=== PATIENT | female | born 1945 | race Caucasian/White ===

== ENCOUNTER 2018-12-08 15:08 | Inpatient (IN) | payer MEDICARE ==
[~2018-12-08] VITALS: Ht 160 cm; Wt 68.9 kg
[~2018-12-08 15:08] MED LIST: ATOR80 PO; Amitriptyline100 MG PO; BUTONI; CETI5 PO; CHOL10002 PO; CLOP75 PO; Cipro500 MG PO; DOC250 PO; FENO145 PO; FISH1000 PO; FLUT44OIA INH; Flagyl500 MG PO; Flonase 0.05% N16 GM; Isosorbide Dini30 MG PO; METO50ER PO; NITR.4SL SL; SITA100T2 PO; Zantac150 MG PO
[2018-12-08 16:02] LABS: Source, Urine Catheter
[2018-12-08 16:18] LABS: Bilirubin, Urine Neg (Neg); Blood, Urine 3+ (Neg); Glucose Qualitative, Urine Neg (Neg); Ketones, Urine 1+ (Neg); Leukocyte Esterase, Urine 3+ (Neg); Nitrite, Urine Neg (Neg); Protein, Urine 3+ (Neg); Urobilinogen, Urine NORM (Normal)
[2018-12-08 16:27] LABS: BASOPHILS ABSOLUTE AUTO 0.03 K/mm3 (0.00-0.23); BASOPHILS PERCENT AUTO 0 % (0-2); EOSINOPHILS ABSOLUTE AUTO 0.22 K/mm3 (0.00-0.68); EOSINOPHILS PERCENT AUTO 3 % (0-6); Hematocrit 20.6 % (33.0-51.0); IMMATURE GRAN ABSOLUTE AUTO 0.04 K/mm3 (0.00-0.10); IMMATURE GRAN PERCENT AUTO 1 % (0-1); LYMPHOCYTES ABSOLUTE AUTO 1.02 K/mm3 (0.84-5.20); LYMPHOCYTES PERCENT AUTO 12 % (21-46); MONOCYTES ABSOLUTE AUTO 0.53 K/mm3 (0.16-1.47); MONOCYTES PERCENT AUTO 6 % (4-13); Mean Corpuscular HGB 20.3 pg (26.0-34.0); Mean Corpuscular HGB Conc 26.2 g/dL (31.5-36.5); Mean Corpuscular Volume 77 fL (80-100); NEUTROPHILS ABSOLUTE AUTO 6.56 K/mm3 (1.96-9.15); NEUTROPHILS PERCENT AUTO 78 % (41-73); NRBC ABSOLUTE 0.12 K/mm3 (0.00-0.02); NRBC Auto 1.4 /100 WBC (0.0-0.2); Platelet Count 193 K/mm3 (150-400); RDW Coefficient Variation 17.9 % (11.7-14.2); RDW Standard Deviation 49.9 fL (35.1-46.3); Red Blood Cell Count 2.66 M/mm3 (3.80-5.20)
[2018-12-08 16:31] LABS: Color, Urine Yellow (P-Yellow)
[2018-12-08 16:31] LABS: Hemoglobin 5.4 g/dL (11.5-16.0)
[2018-12-08 16:33] LABS: Appearance, Urine Cloudy (Clear); Bacteria Many /hpf; Red Blood Cells, Urine 25-50 /hpf (0-2); Squamous Epithelial Cells Few /hpf (Few); White Blood Cells, Urine TNTC /hpf (0-5)
[2018-12-08 16:53] LABS: Albumin, Blood 2.7 g/dL (3.4-5.0); Albumin/Globulin Ratio 0.8 (0.8-1.8); Bilirubin, Total 0.6 mg/dL (0.1-1.0); Bun/Creatinine Ratio 25.2 (12.0-20.0); Calcium, Blood 8.4 mg/dL (8.5-10.1); Creatine Kinase MB 3.8 ng/mL (0.0-3.6); Creatinine, Blood 1.63 mg/dL (0.40-1.00); Globulin, Blood 3.3 g/dL (2.2-4.0); Magnesium, Blood 2.2 mg/dL (1.6-2.4); Potassium, Blood 5.8 mmol/L (3.5-5.5); Troponin I 0.413 ng/mL (0.000-0.040)
[2018-12-08 16:57] LABS: Thyroid Stimulating Hormone 1.64 uIU/mL (0.360-4.800)
[2018-12-08 17:20] LABS: IMMATURE RETIC FRACTION 9.5 % (2.3-16.0); RETIC HGB EQUIVALENT 14.9 pg (28.20-36.60); RETICULOCYTE ABSOLUTE 0.0653 M/mm3 (0.0200-0.1100); RETICULOCYTE COUNT PERCENT 2.4 % (0.50-2.50)
[2018-12-08] MEDS ORDERED: TRAM50 PO (17:59)
[2018-12-08] MEDS ORDERED: INSULANPEN SC (18:01)
[2018-12-08] MEDS ORDERED: NOVOLOG FL100 UNIT/1 (18:01)
[2018-12-08 18:50] LABS: Percent Saturation 2.7 % (15.0-50.0)
[2018-12-08 19:51] LABS: Base Excess Venous -5.2 mmol/L; Bicarbonate Venous 20.1 mmol/L (24.0-30.0); PO2 Venous 56.1 mmHg (38-42); pH Blood Venous 7.25 (7.34-7.37)
[2018-12-08 20:18] LABS: Albumin, Blood 2.6 g/dL (3.4-5.0); Anion Gap 8 mmol/L (6-16); Blood Urea Nitrogen 40 mg/dL (8-24); CO2, Blood 24 mmol/L (21-32); Calcium, Blood 8.7 mg/dL (8.5-10.1); Chloride, Blood 108 mmol/L (98-108); Glomerular Filtration Rate 34 (60-); Glucose, Blood 204 mg/dL (70-99); Sodium, Blood 140 mmol/L (136-145)
[2018-12-09 00:19] LABS: Hemoglobin 10.2 g/dL (11.5-16.0)
--- NOTE | 2018-12-09 01:56 | NUR ---
ASSUING CARE RECEIVED REPORT FROM EMERY LYNNE IN THE ER. PT IS BEING ADMITTED DUE TO SEVERE ANEMIA. PT IS ABLE TO ANSWER ORIENTATION QUESTIONS APPROPRIATELY BUT APPEARS TO BE CONFUSED AT TIMES AND HAS BEEN OBSEVED TO PULL AT LINES AND ATTEMPT TO GET OUT OF BED. PT IS RECEIVING 1 UNIT OF BLOOD AT THE TIME OF ARRIVAL TO ER. PER REPORT UNIT TRANSFUSION AT THE TIME OF ARRIVAL IS 2ND UNIT OF 3 ORDERED. TRANSFUSION COMPLETED AND 3RD UNIT VERIFIED AND INITIATED SHORTLY AFTER TIME OF ARRIVAL. PT LUNG SOUNDS ARE WHEEZY AND OCCASIONALL CRACKLES CAN BE HEARD. LR AT 100ML/HR HELD AT THIS ITME DUE TO CLINICAL JUDGMENT THROUGH BLOOD TRANSFUSION. WILL MONITOR AND INITIATE LR IS APPROPRIATE AFTER TRANSFUSION. PT IS RECEIVING PROTONIX GTT AT 10ML/HR, INITIATED SHORTLY AFTER TIME OF ARRIVAL. PT HAS COLOSTOMY TO RIGHT ABDOMEN. SOFT BROWN STOOL AND GAS NOTED IN COLOSTOMY BAG. NO BLACK OR TARRY STOOL NOTED. PT HAS NO OBVIOUS SIGNS OF BLEEDING AT THIS TIME. PT IS ON 4L O2 VIA NC AT THIS TIME. PT SPO2 IS DIFFICULT TO OBTAIN AT TIMES. PT SPO2 IS MAINTAINING IN THE HIGH 90'S WITH RELIABLE READINGS. PT BP IS MAINTAINING IN HTE LOW 100'S AT THIS TIME. ASSUMING CARE OF PT AT THE TIME OF ARRIVAL TO UNIT. WILL CONTINUE TO MONITOR PT.
[2018-12-09 03:34] LABS: BASOPHILS ABSOLUTE AUTO 0.05 K/mm3 (0.00-0.23); BASOPHILS PERCENT AUTO 1 % (0-2); EOSINOPHILS ABSOLUTE AUTO 0.11 K/mm3 (0.00-0.68); EOSINOPHILS PERCENT AUTO 1 % (0-6); Hemoglobin 9.8 g/dL (11.5-16.0); IMMATURE GRAN ABSOLUTE AUTO 0.05 K/mm3 (0.00-0.10); IMMATURE GRAN PERCENT AUTO 1 % (0-1); LYMPHOCYTES PERCENT AUTO 14 % (21-46); MONOCYTES ABSOLUTE AUTO 0.66 K/mm3 (0.16-1.47); MONOCYTES PERCENT AUTO 8 % (4-13); Mean Corpuscular HGB 24.5 pg (26.0-34.0); Mean Corpuscular HGB Conc 29.7 g/dL (31.5-36.5); NEUTROPHILS PERCENT AUTO 76 % (41-73); NRBC Auto 1.1 /100 WBC (0.0-0.2); Platelet Count 171 K/mm3 (150-400); RDW Standard Deviation 57.3 fL (35.1-46.3); White Blood Cell Count 8.77 K/mm3 (4.00-11.30)
[2018-12-09 03:42] LABS: Mean Corpuscular Volume 83 fL (80-100)
[2018-12-09 03:52] LABS: Bun/Creatinine Ratio 26.1 (12.0-20.0); Calcium, Blood 8.2 mg/dL (8.5-10.1); Creatinine, Blood 1.57 mg/dL (0.40-1.00); Potassium, Blood 4.4 mmol/L (3.5-5.5)
--- NOTE | 2018-12-09 06:18 | NUR ---
SHIFT SUMMARY NOTE PT HAS SLEPT THROUGH MUCH OF THE NIGHT. PT REMAINS ABLE TO ANSWER MOST ORIENTATION QUESTIONS APPROPRIATELY. PT OCCASIONALLY APPEARS TO BE CONFUSED BUT APPEARS TO BE IMPROVING OVERNIGHT. PT IS RECEIVING LR AT 100ML/HR AND PROTONIX AT 10ML/HR. PT RECEIVED 1 UNIT OF BLOOD AFTER ARRIVAL TO THE UNIT. PT COLOR APPEARS TO BE IMPROVED SINCE ARRIVAL. PT REMANS ON 4L O2 VIA NC. PT SPO2 IS IN THE HIGH 90'S. BP IS STABLE AT THIS TIME IN THE 110-120'S. PT HR HAS MAINTAINIED IN THE 80'S. PT LE CATH REMAINS IN PLACE. PT HAS HAD CLOUDY YELLOW URINE OVERNIGHT. WILL REPORT OFF TO ONCOMING DAY SHIFT NURSE.
--- NOTE | 2018-12-09 12:21 | NUR ---
REASSESSMENT: PT WAS VERY DIFFICULT TO WAKE UP THIS MORNING AND KEEP AWAKE, BUT NOW SHE WAKES EASILY AND STAYS AWAKE FOR A CONVERSATION. IF LEFT ALONE SHE DOES EVENTUALLY FALL BACK ASLEEP. LUNGS HAVE CRACKLES IN THE BASES, SHE IS ON 2L/NC. SR, BP STABLE, SEE VITALS. OSTOMY CONTINUES TO HAVE BROWN, SOFT OUTPUT. NO HEMATEMESIS OR ANY SIGNS OF BLEEDING. TOLERATING CL LIQUID DIET. PT'S CAME BY AND WAS FULLY UPDATED. CONTINUING TO MONITOR.
[2018-12-09 13:07] LABS: Hematocrit 33.1 % (33.0-51.0); Hemoglobin 9.9 g/dL (11.5-16.0)
--- NOTE | 2018-12-09 17:23 | NUR ---
SHIFT SUMMARY: PT HAS CONTINUED TO BE EASY TO AWAKE THIS AFTERNOON, BUT SLEEPS WHEN UNDISTURBED. DR. MEADOWS CAME BY AND IS PLANNING FOR AN EGD AND COLONSOCOPY TOMORROW EVENING AFTER OFFICE HOURS. PT HAS BEEN SR, BP STABLE. LUNGS ARE COARSE AND PT IS GETTING DYSPNEIC WITH MINIMAL EXERTION. DR. MEADOWS WROTE FOR LASIX. LE HAS YELLOW URINE WITH PURULENT OUTPUT WELL. SM AMT OF BROWN, SOFT OUTPUT IN THE OSTOMY BAG. PT'S HSUBAND CAME IN THIS MORNING AND WAS UPDATED.
--- NOTE | 2018-12-09 19:20 | NUR ---
ASSUME CARE: REPORT RECIEVED FROM [place]. FINISHING UP DINNER TRAY. MONITOR INTACT SHOWING SINUS RHYTHM. HEART RATE 80'S-90'S. DENIES DISCOMFORT. WATCHING TV. LUNG SOUNDS COARSE THROUGHOUT. RESPIRATIONS REGUALR AND EASY AT REST WITH O2 IN PLACE SPO2 98%, ABDOMEN SOFT WITH OSTOMY DEVICE INTACT WITH SOFT BROWN STOOL. LE PATENT DRAINING SHAWANDA URINE. HOLDEN WELL IN BED. CONTINUE TO MONITOR AND REPORT CHANGE IN PATIENT CONDITION
--- NOTE | 2018-12-10 02:30 | NUR ---
PT AWAKE . INFORMED OF PENDING TRANSFER TO PCU 3. CONTINUE TO MONITOR AND REPORT CHANGE IN PATIENT CONDITION.
[2018-12-10 04:20] LABS: BASOPHILS ABSOLUTE AUTO 0.04 K/mm3 (0.00-0.23); BASOPHILS PERCENT AUTO 0 % (0-2); EOSINOPHILS ABSOLUTE AUTO 0.26 K/mm3 (0.00-0.68); EOSINOPHILS PERCENT AUTO 3 % (0-6); Hematocrit 33.7 % (33.0-51.0); IMMATURE GRAN ABSOLUTE AUTO 0.09 K/mm3 (0.00-0.10); IMMATURE GRAN PERCENT AUTO 1 % (0-1); LYMPHOCYTES ABSOLUTE AUTO 1.11 K/mm3 (0.84-5.20); LYMPHOCYTES PERCENT AUTO 12 % (21-46); MONOCYTES ABSOLUTE AUTO 0.73 K/mm3 (0.16-1.47); MONOCYTES PERCENT AUTO 8 % (4-13); Mean Corpuscular HGB 24.2 pg (26.0-34.0); Mean Corpuscular HGB Conc 29.7 g/dL (31.5-36.5); Mean Corpuscular Volume 82 fL (80-100); NEUTROPHILS ABSOLUTE AUTO 7.39 K/mm3 (1.96-9.15); NEUTROPHILS PERCENT AUTO 77 % (41-73); NRBC ABSOLUTE 0.12 K/mm3 (0.00-0.02); NRBC Auto 1.2 /100 WBC (0.0-0.2); Platelet Count 156 K/mm3 (150-400); RDW Coefficient Variation 19.9 % (11.7-14.2); RDW Standard Deviation 58.4 fL (35.1-46.3); Red Blood Cell Count 4.13 M/mm3 (3.80-5.20); White Blood Cell Count 9.62 K/mm3 (4.00-11.30)
[2018-12-10 04:38] LABS: Alanine Aminotransfer (ALT/SGP 198 U/L (12-78); Albumin, Blood 2.4 g/dL (3.4-5.0); Albumin/Globulin Ratio 0.8 (0.8-1.8); Alk Phos 136 U/L (50-136); Anion Gap 7 mmol/L (6-16); Aspartate Aminotrans (AST/SGOT 175 U/L (12-37); Bilirubin, Total 0.7 mg/dL (0.1-1.0); Blood Urea Nitrogen 28 mg/dL (8-24); Bun/Creatinine Ratio 26.7 (12.0-20.0); CO2, Blood 28 mmol/L (21-32); Calcium, Blood 7.9 mg/dL (8.5-10.1); Chloride, Blood 106 mmol/L (98-108); Creatinine, Blood 1.05 mg/dL (0.40-1.00); Globulin, Blood 3.2 g/dL (2.2-4.0); Glomerular Filtration Rate 55 (60-); Glucose, Blood 208 mg/dL (70-99); Phosphorus, Blood 2.7 mg/dL (2.5-4.9); Potassium, Blood 3.3 mmol/L (3.5-5.5); Sodium, Blood 141 mmol/L (136-145); Total Protein, Blood 5.6 g/dL (6.4-8.2)
--- NOTE | 2018-12-10 06:49 | NUR ---
SHIFT SUMMARY. NO ACUTE CHANGES THIS SHIFT. PT DENIES ANY CHEST PAIN/PRESSURE, N/V OR SOB. PT STARTED COLON PREP AT 0600. PT'S VS HAVE BEEN STABLE. CALL LIGHT IN REACH, BED IS LOCKED AND LOW WILL CONTINUE TO MONITOR UNTIL REPORT IS GIVE TO ONCOMING RN.
--- NOTE | 2018-12-10 10:30 | NUR ---
PT CONVERTED TO AFIB IN THE 110'S TO 120'S. PT ASYMPTOMATIC. PT STATES SHE HAS CONVERTED TO AFIB BEFORE IN THE PAST. PT CONVERTED BACK TO SINUS SHORTLY AFTER SEE RHYTHM STRIPS IN CHART. HR IN THE 90'S AT THIS TIME.
--- NOTE | 2018-12-10 13:13 | NUR ---
PT ENCOURAGED ALL MORNING TO DRINK GOLYTELY FOR PROCEDURE. PT HAS ONLY HAD ABOUT HALF OF PREP AT THIS TIME. PT STILL HAVING BROWN STOOL IN COLOSTOMY. DR. MEADOWS CALLED AND ORDERS TO HAVE PT CONTINUE TO DRINK PREP. PT ENCOURAGED TO CONTINUE SO SHE CAN HAVE PROCEDURE. WILL CONITNUE TO MONITOR.
--- NOTE | 2018-12-10 15:30 | NUR ---
SPOKE WITH DR. MEADOWS ABOUT WHETHER OR NOT TO CONTINUE PREP. ORDERS TO STOP PREP IN ORDER FOR PT TO BE ABLE TO HAVE EGD THIS AFTERNOON AND WAIT TO DO THE COLONOSCOPY TOMORROW. PT NPO SINCE 1514. PT INFORMED OF PLAN. WILL CONTINUE TO MONITOR.
--- NOTE | 2018-12-10 17:00 | NUR ---
PT TAKEN TO DAY SURGERY FOR EGD PROCEDURE.
--- NOTE | 2018-12-10 17:21 | NUR ---
PATIENT GAVE PERMISSION FOR ME TO CARE FOR HER TODAY 12/10/18. History, Chart, Medications and Allergies reviewed before start of procedure.Patient confirms NPO status and agrees with scheduled surgery.PATIENT HAS COUGH AND IS ANESTESIA CASE. BASELINE ON 2L OXYGEN.
--- NOTE | 2018-12-10 17:41 | NUR ---
12/10/18 174 Bambi Khan History, Chart, Medications and Allergies reviewed before start of procedure.MAC CASE WITH DR. PADILLA. SEE [facility] RECORD FOR CARE.
--- NOTE | 2018-12-10 17:56 | NUR ---
STUDENT NURSE ASSISTING WITH CARE. AGREE WITH HER CHARTING AND CARE.
--- NOTE | 2018-12-10 19:13 | NUR ---
SHIFT SUMMARY PT RETURNED FROM PROCEDURE. PT ALERT AND ORIENTED. RECOVERY VITALS HAVE BEEN STABLE. PT ABLE TO TRANSFER FROM [facility] TO BED WITH MINIMAL ASSISTANCE. O2 SATS HAVE REMAINED ABOVE 92% ON 2L NC. HR HAS BEEN NSR WITH RATE IN THE 80'S. PT DENIES ANY PAIN AT THIS TIME. COLOSTOMY BAG HAS BEEN REPLACED THIS SHIFT AND PT RECEIVED BED BATH. REPORT GIVEN TO COMMERCIAL PROJECT MANAGER RN.
--- NOTE | 2018-12-11 04:26 | NUR ---
ASSUMED CARE OF PATIENT AT APPROXIMATELY 1905 FROM KACEY Her RN. PATIENT ALERT AND ORIENTED X4. PATIENT IN BED FOR SHIFT. PATIENT S/P EGD; TO HAVE COLONSCOPY TODAY; START PREP AT 0600; NPO AFTER 0100. TOLERATED CLEAR LIQUID DIET WELL AFTER UPPER. PATIENT DENIES PAIN, NAUSEA OR DIZZINESS. PATIENT REPORTS N/T IN LEFT FOOT THAT SHE HAS NOT HAD IN A LONG TIME. COLOSTOMY BAG BURPED AND EMPTIED FREQUENTLY. URINARY CATHETER PATENT AND DRAINING. SR TO ST ON TELE; OXYGEN SATURATION ABOVE 90% ON 2LPM VIA NC. 2X PIV S/L. PATIENT HAS SLEPT AT LEAST SEVEN HOURS THIS SHIFT. PATIENT CURRENTLY RESTING IN BED; CALL LIGHT IN REACH; BED IN LOWEST POSISION; BED ALARM ON; WILL CONINUE TO MONITOR AND ASSESS UNTIL END OF SHIFT.
[2018-12-11 06:12] LABS: BASOPHILS ABSOLUTE AUTO 0.04 K/mm3 (0.00-0.23); BASOPHILS PERCENT AUTO 1 % (0-2); EOSINOPHILS ABSOLUTE AUTO 0.34 K/mm3 (0.00-0.68); EOSINOPHILS PERCENT AUTO 4 % (0-6); Hematocrit 34.2 % (33.0-51.0); Hemoglobin 9.7 g/dL (11.5-16.0); IMMATURE GRAN ABSOLUTE AUTO 0.07 K/mm3 (0.00-0.10); IMMATURE GRAN PERCENT AUTO 1 % (0-1); LYMPHOCYTES PERCENT AUTO 11 % (21-46); MONOCYTES ABSOLUTE AUTO 0.72 K/mm3 (0.16-1.47); MONOCYTES PERCENT AUTO 9 % (4-13); Mean Corpuscular HGB 24.3 pg (26.0-34.0); Mean Corpuscular HGB Conc 28.4 g/dL (31.5-36.5); NEUTROPHILS ABSOLUTE AUTO 6.12 K/mm3 (1.96-9.15); NEUTROPHILS PERCENT AUTO 75 % (41-73); NRBC ABSOLUTE 0.07 K/mm3 (0.00-0.02); NRBC Auto 0.9 /100 WBC (0.0-0.2); Platelet Count 140 K/mm3 (150-400); RDW Coefficient Variation 20.9 % (11.7-14.2); RDW Standard Deviation 62.7 fL (35.1-46.3); White Blood Cell Count 8.19 K/mm3 (4.00-11.30)
[2018-12-11 06:22] LABS: Mean Corpuscular Volume 86 fL (80-100)
[2018-12-11 06:46] LABS: Albumin, Blood 2.3 g/dL (3.4-5.0); Anion Gap 8 mmol/L (6-16); Blood Urea Nitrogen 13 mg/dL (8-24); Bun/Creatinine Ratio 15.4 (12.0-20.0); CO2, Blood 28 mmol/L (21-32); Chloride, Blood 110 mmol/L (98-108); Creatinine, Blood 0.84 mg/dL (0.40-1.00); Glomerular Filtration Rate >60 (60-); Glucose, Blood 110 mg/dL (70-99); Phosphorus, Blood 2.3 mg/dL (2.5-4.9); Potassium, Blood 3.5 mmol/L (3.5-5.5); Sodium, Blood 146 mmol/L (136-145)
--- NOTE | 2018-12-11 06:52 | NUR ---
PATIENT SLEPT ABOUT NINE HOURS LAST NIGHT. NO ACUTE CHANGES. VSS. WILL CONTINUE TO MONITOR AND ASSESS UNTIL END OF SHIFT.
--- NOTE | 2018-12-11 11:12 | NUR ---
SHIFT NOTE ASSUMED CARE OF PT AT APPROX 0700 TODAY 12/11/18. VSS AND PT IN NO APPARENT SIGNS OF DISTRESS. PT ALERT AND ORIENTED. PT WITH MOIST, UNPRODUCTIVE COUGH THIS AM, LASIX ORDERED PER DR WINSTON. FIRST DOSE GIVEN AT 0900. PT INFILTRATED BOTH IV SITES. NEW IV IN R HAND. NEW COLOSTOMY BAG IN PLACE OF 1045. PT STARTED GOLYTELY AT 0600 WITH 300 ML COLOSTOMY OUTPUT. PT RESTING COMFORTABLY WITH NO C/O PAIN OR NAUSEA AT THIS TIME. SEE SHIFT ASSESSMENT FOR DETAILED ASSESSMENT. WILL CONTINUE TO MONITOR
--- NOTE | 2018-12-11 17:30 | NUR ---
SHIFT SUMMARY VSS THIS SHIFT. PT HAS BEEN DRINKING GOLYTELY SINCE 0600. PT REPORTED STOMACH CRAMPING AND PAIN THIS AFTERNOON WHICH SLOWED HER INTAKE OF GOLYTELY. DAY SURG CALLED AT 1715 WITH UPDATE ON COLONOSCOPY: DR IS ABOUT TWO HOURS BEHIND. PT NEEDS TO FINISH GOLYTELY BY 1745 THEN BE NPO. PT HAS BEEN EDUCATED ON REQUIREMENT FOR COLONOSCOPY AND IS CURRENTLY DRINKING GOLYTELY. COLOSTOMY CHANGED THIS SHIFT, CURRENTLY CDI. PT ON 2L NC AND KEEPING SATS ABOVE 90. NO ACUTE CHANGES THIS SHIFT. PT SR-ST IN LOW 100S. PT COMFORTABLE WITH NO COMPLAINTS AT THIS TIME. PT RECIEVED ULTRAM WHICH WAS EFFECTIVE FOR STOMACH PAIN THIS AFTERNOON. PT IN NO APPARENT SIGNS OF DISTRESS AND IS SITTING AT THE EDGE OF THE BED LOOKING OUT THE WINDOW. WILL CONTINUE TO MONITOR
--- NOTE | 2018-12-11 18:20 | NUR ---
COLONOSCOPY UPDATE DR MEADOWS AT BEDSIDE WITH PT AND DECIDES WE WILL NOT CONTINUE WITH COLONOSCOPTY TOMORROW. DR MEADOWS CURRENTLY DISCUSSING NG TUBE OPTION FOR PT D/T SLOW INTAKE OF GOLYTELY. PT REQUESTS NG TUBE. PER DR MEADOWS: COLONOSCOPY SCOPE NOW FOR TOMORROW. CLEAR LIQUIDS TONIGHT UNTIL, AND INCLUDING, BREAKFAST; THEN WATER ONLY, PLACE NG TUBE AND GIVE GOLYTELY UNTIL STOOL IS CLEAR LIKE WATER. NPO AT 1300 12/12/18.
--- NOTE | 2018-12-12 00:32 | NUR ---
ASSUMED CARE OF PATIENT AT APPROXIMATELY 1905 FROM THONG Phillips RN. PATIENT ALERT AND ORIENTED X4. PATIENT DID NOT HAVE SCOPE 4/4; SCOPE 4/5; WILL HAVE NG PLACED AFTER BREAKFAST AND GOLYTLY THROUGH TUBE. CLEAR LIQUID DIET UNTIL THEN. TOLERATED CLEAR LIQUID DIET WELL. PATIENT REPORTS PAIN IN ABDOMEN 04/18; DENIES TYLENOL; REPORTS ALLERGY OF VOMITING AND HIVES; ALLERGY LIST UPDATED; ULTRAM SCHEDULED BID; GIVEN APPROX 7 HOURS PRIOR; SURGICAL PRODUCT SALES CONSULTANT PAMELA CALLED; ORDERS RECIEVED. PATIENT DENIES NAUSEA OR DIZZINESS. PATIENT REPORTS N/T IN RIGHT FOOT. COLOSTOMY BAG BURPED AND EMPTIED FREQUENTLY. URINARY CATHETER PATENT AND DRAINING. SR TO ST ON TELE; OXYGEN SATURATION ABOVE 90% ON 2LPM VIA NC. NO IV ACCESS AT SHIFT CHANGE; HETAL Phillips, PCU CHARGE NURSE PLACED POWERGLIDE TO ANN. PATIENT CURRENTLY RESTING IN BED; CALL LIGHT IN REACH; BED IN LOWEST POSISION; BED ALARM ON; WILL CONINUE TO MONITOR AND ASSESS UNTIL END OF SHIFT.
[2018-12-12 04:03] LABS: Hematocrit 32.4 % (33.0-51.0); Hemoglobin 9.4 g/dL (11.5-16.0); Mean Corpuscular HGB 24.4 pg (26.0-34.0); Mean Corpuscular Volume 84 fL (80-100); NRBC ABSOLUTE 0.04 K/mm3 (0.00-0.02); NRBC Auto 0.5 /100 WBC (0.0-0.2); Platelet Count 149 K/mm3 (150-400); RDW Coefficient Variation 22.3 % (11.7-14.2); RDW Standard Deviation 62.4 fL (35.1-46.3); Red Blood Cell Count 3.86 M/mm3 (3.80-5.20); White Blood Cell Count 8.77 K/mm3 (4.00-11.30)
[2018-12-12 04:17] LABS: Anion Gap 7 mmol/L (6-16); Blood Urea Nitrogen 9 mg/dL (8-24); Bun/Creatinine Ratio 12.2 (12.0-20.0); CO2, Blood 32 mmol/L (21-32); Calcium, Blood 7.7 mg/dL (8.5-10.1); Chloride, Blood 104 mmol/L (98-108); Creatinine, Blood 0.74 mg/dL (0.40-1.00); Glomerular Filtration Rate >60 (60-); Glucose, Blood 115 mg/dL (70-99); Potassium, Blood 3.1 mmol/L (3.5-5.5); Sodium, Blood 143 mmol/L (136-145)
--- NOTE | 2018-12-12 06:07 | NUR ---
PATIENT HAD BEDBATH THIS MORNING. PATIENT SLEPT ABOUT FOUR HOURS LAST NIGHT. NO ACUTE CHANGES TO REPORT. WILL CONTINUE TO MONITOR AND ASSESS UNTIL END OF SHIFT.
--- NOTE | 2018-12-12 10:15 | NUR ---
ASSUMED CARE OF PT AT APPROX 0700. VSS WITH NO APPARENT SIGNS OF DISTRESS. PT ON CLEAR LIQUID DIET UNTI WATER ONLY AT 0900. PLAN FOR TODAY IS TO PLACE NG TUBE AND GIVE GOLYTELY. 1300 NPO AND COLONOSCOPY BY DR MEADOWS TO BE DONE THIS AFTERNOON. PT REQUEST NG TUBE BECAUSE SHE STATES SHE CANNOT DRINK THE GOLYTELY ON HER OWN. UPON ASSESSMENT, PT LUNGS CLEAR THROUGHOUT. DIMINISHED TO THE BASES. PT C/O HEADACH AND ULTRAM 50 MG GIVEN AND EFFECTIVE. LE CATH REMOVED BY THIS RN AT 1005 12/12/18. WILL MONITOR THAT PT VOIDS WITHIN 4 HOURS. PT WITH POWERGLIDE TO THE BRIGETTE, FLUSHES WELL AND IS CURRENTLY RUNNING K+ FOR 3.1 RESULT THIS AM. PT TOLERATING K+ INFUSION AT THIS TIME. PT IS MOVING ALL EXTREMITIES, SKIN CDI, NO C/O CALF TENDERNESS, REDNESS, SWELLING, OR PAIN. PT WOULD LIKE TO GET UP TO THE CHAIR TODAY. PT HAS NO C/O OR CONCERNS AT THIS TIME. DR ENRIQUEZ IN THIS AM WITH PT. NO NEW ORDERS RECIEVED. WILL CONTINUE TO MONITOR.
--- NOTE | 2018-12-12 14:23 | NUR ---
DAY SURGERY UPDATE PT REFUSED NG TUBE AT 1130 THIS AM. HAVE BEEN DIRECTING AND REDIRECTING PT TO CONSUME GOLYTELY PO. EDUCATED PT ON NEED TO CONSUME GOLYTELY. PT SLOW TO CONSUME. PT EDUCATED THAT IF NOT CONSUMED AND STOOL NOT CLEAR THEN PROCEDURE CANNOT BE DONE. PT VERBALIZES UNDERSTANDING. SPOKE WITH DAY SURGERY AT 1428, THEY SAY TO CONTINUE WITH GOLYTELY UNTIL 1500 THEN REASSESS. WILL DO SO. WILL CONTINUE TO MONITOR STOOL OUTPUT.
--- NOTE | 2018-12-12 16:21 | NUR ---
PT OFF UNIT WITH DAY SURGERY FOR COLONOSCOPY AT 3643
--- NOTE | 2018-12-12 16:59 | NUR ---
PATIENT GAVE PERMISSION FOR ME TO CARE FOR HER TODAY 12/12/18. History, Chart, Medications and Allergies reviewed before start of procedure.Patient confirms NPO status and agrees with scheduled surgery. Patient states colon prep results clear. Lungs clear T/O to Auscultation.
--- NOTE | 2018-12-12 17:02 | NUR ---
STUDENT RN SHAYNA ASSISTING WITH PRE PROCEDURE CARE. AGREE WITH HER CHARTING AND CARE.
--- NOTE | 2018-12-12 17:22 | NUR ---
SHIFT SUMMARY NO ACUTE CHANGES THIS SHIFT. PT OSTOMY SITE ENLARGED WITH GOLYTELY ADMINISTRATION. VSS. PT C/O HEADACHE TODAY RELIEVED BY 50 MG ULTRAM. NO CHANGES IN MENTATION. BREATH SOUNDS REMAIN CLEAR. PT STABLE ON RA WITH O2 ABOVE 90. SR TO ST ON TELE. NO COMPLAINTS OF CALF TENDERNESS, REDNESS, OR SWELLING. PT DENIES SOB OR CHEST PAIN. PT OFF UNIT AT THIS TIME WITH DAY SURGERY FOR COLONOSCOPY. WILL CONTINUE TO MONITOR ONCE PT RETURNS TO UNIT.
--- NOTE | 2018-12-12 18:24 | NUR ---
RECIEVED REPORT FROM DAY SURGERY RN
--- NOTE | 2018-12-12 18:50 | NUR ---
PT BACK IN PCU 3 AT 1840. VSS. NO APPARENT SIGNS OF DISTRESS.
--- NOTE | 2018-12-12 20:40 | NUR ---
PM NOTE. ASSUMED CARE OF PT APROX 1900, PT IS A&Ox4 AND SBA W/FWW. PT WAS ADMITTED DUE TO SEVERE ANEMIA, PT IS S/P COLONOSCOPY, PT IS RECOVERING WELL. TELE INTACT, NSR IN THE 90'S PER AERONAUTICAL ENGINEERING TEACHER, PT'S BP 123/67, PT HAS 1+ EDEMA TO HER BLLE. L/S CLEAR AND DIM T/O. BT PRESENT AND HYPERACTIVE ABD IS SOFT AND NONTENDER TO PALP, PT'S COLOSTOMY BAG IS INTACT DRAINING LIQUIDY LIGHT BROWN STOOL. CALL LIGHT IN REACH, BED IS LOCKED AND LOW WILL CONTINUE TO MONITOR.
[2018-12-13 04:38] LABS: Hematocrit 34.5 % (33.0-51.0); Mean Corpuscular HGB 24.8 pg (26.0-34.0); Mean Corpuscular Volume 85 fL (80-100); NRBC ABSOLUTE 0.03 K/mm3 (0.00-0.02); NRBC Auto 0.3 /100 WBC (0.0-0.2); Platelet Count 154 K/mm3 (150-400); RDW Coefficient Variation 22.8 % (11.7-14.2); RDW Standard Deviation 65.5 fL (35.1-46.3); Red Blood Cell Count 4.04 M/mm3 (3.80-5.20); White Blood Cell Count 9.27 K/mm3 (4.00-11.30)
[2018-12-13 04:39] LABS: Mean Platelet Volume 11.7 fL (9.1-12.4)
[2018-12-13 04:52] LABS: Anion Gap 4 mmol/L (6-16); Blood Urea Nitrogen 9 mg/dL (8-24); Bun/Creatinine Ratio 13.2 (12.0-20.0); CO2, Blood 32 mmol/L (21-32); Calcium, Blood 8.1 mg/dL (8.5-10.1); Chloride, Blood 107 mmol/L (98-108); Creatinine, Blood 0.68 mg/dL (0.40-1.00); Glomerular Filtration Rate >60 (60-); Glucose, Blood 180 mg/dL (70-99); Potassium, Blood 3.9 mmol/L (3.5-5.5); Sodium, Blood 143 mmol/L (136-145)
--- NOTE | 2018-12-13 06:44 | NUR ---
SHIFT SUMMARY. NO ACUTE CHANGES NOTED THIS SHIFT. PT STATED SHE WAS CONCERNED ABOUT HER STOMA'S INFLAMMATION AFTER THE COLONOSCOPY ON 12/12. PT DENIES ANY PAIN TO THE SITE. PT'S VS HAVE BEEN STABLE T/O SHIFT. PT WAS UP TO THE BATHROOM W/FWW AND SBA TO CHANGE HER COLOSTOMY WAFER/BAG. PT HAS RASH DUE TO WAFER, PT STATES THIS IS NORMAL. PER GI PROVIDER SHE IS TO FOLLOW UP WITH [facility] FOR ANOTHER COLONOSCOPY WITH THEM, GI HAS SIGNED OFF ON THIS PT'S CARE FOR THIS VISIT PER PROVIDER'S NOTE. CALL LIGHT IN REACH, BED IS LOCKED AND LOW WILL CONTINUE TO MONITOR UNTIL REPORT IS GIVEN TO ONCOMING RN.
--- NOTE | 2018-12-13 09:00 | NUR ---
ASSUMED CARE PT ALERT ADN ORIENTED. VS STABLE. PT REPORTS FEELING SHORT OF BREATH. PT BREATHING THROUGH MOUTH AND EDUCATED TO BREATHE THROUGH NOSE TO RECEIVE O2. O2 SATS >90% ON 2L NC. HR 110'S SINUS TACH. DR. ENRIQUEZ IN TO SEE PT THIS AM AND NEW ORDERS FOR LASIX PROVIDED. DR. ENRIQUEZ NOTIFIED ABOUT SWELLING OF STOMA. ORDERS TO DISCUSS WITH DR. MEADOWS. WILL CONTINUE TO MONITOR.
--- NOTE | 2018-12-13 10:00 | NUR ---
DR. MEADOWS IN TO SEE PT. DISCUSSED ENLARGED STOMA WITH HIM. HE STATES IT IS EXPECTED AFTER COLONOSCOPY.
--- NOTE | 2018-12-13 13:10 | NUR ---
echocardiogram complete
--- NOTE | 2018-12-13 19:29 | NUR ---
SHIFT SUMMARY PT ALERT AND ORIENTED. VS STABLE. HR HAS BEEN NSR TO SINUS TACH WITH A RATE 90'S-110'S. PT COMPLAINED OF SOME PAIN IN HER ABDOMEN THAT WAS RELIEVED AFTER MEDICATION ADMINISTRATION. PT COMPLAINED OF SOME SHORTNESS OF BREATH, BUT O2 SATS REMAINED >90% ON 2L. PT ABLE TO AMBULATE TO BATHROOM NEEDED WITH SBA AND FWW. REPORT GIVEN TO ORNAMENT SETTER RN.
--- NOTE | 2018-12-13 20:57 | NUR ---
PM NOTE. ASSUMED CARE OF PT APROX 1900, PT IS A&Ox4 AND SBA W/FWW IN THE ROOM. PT IS SITTING ON THE EDGE OF THE BED AT THE START OF THIS SHIFT. PT HAD TAKEN THE NC OUT OF HER NOSE AND WAS WATCHING TV, HER O2 SATS AT THIS TIME WERE 90% ON RA. TELE INATCT, ST AT 103 PER SENIOR SOFTWARE SYSTEMS ENGINEER, PT'S BP 120/66. PT HAS GENERALIZED EDEMA. L/S BASES DIM AND CLEAR T/O OTHER LOBES. BT PRESENT AND HYPOACTIVE, ABD IS SOFT AND NONTENDER TO PALP. COLOSTOMEY IS DRAINING BROWN LOOSE STOOL INTO BAG. CALL LIGHT IN REACH, BED IS LOCKED AND LOW WILL CONTINUE TO MONITOR.
[2018-12-14 04:23] LABS: Anion Gap 5 mmol/L (6-16); Blood Urea Nitrogen 15 mg/dL (8-24); Bun/Creatinine Ratio 18.7 (12.0-20.0); CO2, Blood 33 mmol/L (21-32); Calcium, Blood 8.5 mg/dL (8.5-10.1); Chloride, Blood 103 mmol/L (98-108); Glomerular Filtration Rate >60 (60-); Glucose, Blood 115 mg/dL (70-99); Potassium, Blood 3.6 mmol/L (3.5-5.5); Sodium, Blood 141 mmol/L (136-145)
--- NOTE | 2018-12-14 06:12 | NUR ---
SHIFT SUMMARY. PT'S O2 REQUIREMENTS INCREASED DURING THIS SHIFT, PT WAS ON 2L NC AT THE START OF THIS SHIFT, AT 0000 PT'S O2 LEVELS WERE LOW 80'S ON 2L, O2 WAS TITRATED UP TO 4L NC. PT ALSO WAS FEBRILE AT 100.7, PT WAS MEDICATED WITH ULTRAM PER EMAR FOR PAIN AT THIS TIME WELL, PT'S TEMP AT REASSESSMENT WAS 99.4. PT STATED THAT SHE "FELT FINE" AT THE TIME. AT 0400 PT'S O2 WAS ABLE TO BE TITRATED BACK DOWN TO 2L NC. NO OTHER ACUTE CHANGES NOTED. CALL LIGHT IN REACH, BED IS LOCKED AND LOW WILL CONTINUE TO MONITOR UNTIL REPORT IS GIVEN TO ONCOMING RN.
--- NOTE | 2018-12-14 18:14 | NUR ---
SHIFT SUMMARY PT ALERT AND ORIENTED. VS STABLE. O2 SATS HAVE REMAINED ABOVE 90% ON 2L NC. PT STATES SHE FEELS LESS SHORT OF BREATH TODAY THAN LAST NIGHT. PT COMPLAINED OF SOME PAIN IN HER ABDOMEN TODAY THAT WAS RELIEVED WITH MEDICATION ADMINISTRATION. PT TOLERATING HER DIET. NO OTHER CHANGES THIS SHIFT. WILL CONTINUE TO MONITOR AND REPORT TO ONCOMING RN. CALL LIGHT IN REACH.
--- NOTE | 2018-12-14 18:59 | NUR ---
REPORT CALLED TO SURGICAL FLOOR RN.
--- NOTE | 2018-12-14 19:32 | NUR ---
PM NOTE. ASSUMED CARE OF PT APROX 1900, PT IS A&Ox4 AND SBA W/FWW. PT WAS SITTING UP ON THE SIDE OF THE BED WATCHING TV. PT'S O2 ON 2L AT THIS TIME WAS 96%, O2 WAS TITRATED DOWN TO 1L NC AND SHE IS NOW AT 93%. TELE INTACT, NSR IN THE 90'S PER COMMUNITY NURSE, PT'S BP 113/61, PT HAS GENERALIZED EDEMA AND TRACE EDEMA TO HER BLLE. PT'S L/S FINE CRACKLES IN THE BASES AND RIGHT MID LOBE, THIS IS NEW FROM LAST NOC SHIFT. PT WAS INSTRUCTED TO USE THE I.S. PT AGREABLE TO USE IT. BT PRESENT AND HYPOACTIVE, ABD IS SOFT PT REPORTS TENDERNESS W/PALP. PT'S STOMA APPEARENCE HAS IMPROVED, COLOSTOMY BAG IS PATENT AND DRAINING SOFT BROWN STOOL. CALL LIGHT IN REACH, BED IS LOCKED AND LOW WILL CONTINUE TO MONITOR.
[2018-12-15 04:03] LABS: BASOPHILS ABSOLUTE AUTO 0.06 K/mm3 (0.00-0.23); BASOPHILS PERCENT AUTO 1 % (0-2); EOSINOPHILS ABSOLUTE AUTO 0.43 K/mm3 (0.00-0.68); EOSINOPHILS PERCENT AUTO 5 % (0-6); Hematocrit 35.8 % (33.0-51.0); Hemoglobin 10.2 g/dL (11.5-16.0); IMMATURE GRAN ABSOLUTE AUTO 0.07 K/mm3 (0.00-0.10); IMMATURE GRAN PERCENT AUTO 1 % (0-1); LYMPHOCYTES ABSOLUTE AUTO 1.22 K/mm3 (0.84-5.20); LYMPHOCYTES PERCENT AUTO 15 % (21-46); MONOCYTES ABSOLUTE AUTO 0.63 K/mm3 (0.16-1.47); MONOCYTES PERCENT AUTO 8 % (4-13); Mean Corpuscular HGB 24.3 pg (26.0-34.0); Mean Corpuscular HGB Conc 28.5 g/dL (31.5-36.5); Mean Corpuscular Volume 85 fL (80-100); NEUTROPHILS ABSOLUTE AUTO 5.72 K/mm3 (1.96-9.15); NEUTROPHILS PERCENT AUTO 70 % (41-73); Platelet Count 155 K/mm3 (150-400); RDW Coefficient Variation 24.4 % (11.7-14.2); RDW Standard Deviation 69.4 fL (35.1-46.3); White Blood Cell Count 8.13 K/mm3 (4.00-11.30)
[2018-12-15 04:27] LABS: Alanine Aminotransfer (ALT/SGP 52 U/L (12-78); Albumin, Blood 2.5 g/dL (3.4-5.0); Albumin/Globulin Ratio 0.8 (0.8-1.8); Alk Phos 89 U/L (50-136); Anion Gap 5 mmol/L (6-16); Aspartate Aminotrans (AST/SGOT 32 U/L (12-37); Bilirubin, Total 0.5 mg/dL (0.1-1.0); Blood Urea Nitrogen 18 mg/dL (8-24); CO2, Blood 33 mmol/L (21-32); Calcium, Blood 8.5 mg/dL (8.5-10.1); Chloride, Blood 102 mmol/L (98-108); Creatinine, Blood 0.75 mg/dL (0.40-1.00); Globulin, Blood 3.3 g/dL (2.2-4.0); Glomerular Filtration Rate >60 (60-); Glucose, Blood 76 mg/dL (70-99); Magnesium, Blood 1.7 mg/dL (1.6-2.4); Potassium, Blood 3.5 mmol/L (3.5-5.5); Sodium, Blood 140 mmol/L (136-145); Total Protein, Blood 5.8 g/dL (6.4-8.2)
--- NOTE | 2018-12-15 06:25 | NUR ---
SHIFT SUMMARY. AT APROX 0400 PT CONVERTED FROM NSR IN THE 90'S TO AFLUTTER/AFIB IN THE 140'S-150'S. PT DOES NOT HAVE A HISTORY OF AFIB/FLUTTER. PT IS NOT SYMPTOMATIC, HER BP AT THE TIME WAS 112/67, PROVIDER WAS CALLED AND ORDERS OBTAINTED FOR A CARDIZEM 10MG IV PUSH, THIS WAS DONE WITH NO CHANGE TO THE PT'S RATE/RHYTHM, PT'S BP AT THIS TIME WAS: 102/63. PROVIDER WAS CALLED AGAIN AND NEW ORDERS OBTAINED FOR A CARDIZEM GTT. PT WAS STARTED AT 5MG/HR, PT'S BP DROPPED TO 95/59 (MAP 71) AND RATE OF 145 APROX 15 MINUTES AFTER GTT WAS STARTED. CHARGE NURSE AWARE, WILL MONITOR CLOSELY. PT'S OTHER VS HAVE BEEN STABLE, PT WAS MEDICATED FOR PAIN PER EMAR. CALL LIGHT IN REACH, BED IS LOCKED AND LOW WILL CONTINUE TO MONITOR UNTIL REPORT IS GIVEN TO ONCOMING RN.
[2018-12-15 09:42] LABS: Percent Saturation 9.4 % (15.0-50.0)
--- NOTE | 2018-12-15 18:17 | NUR ---
SHIFT SUMMARY PT RESTING IN BED THROUGHOUT THE DAY. ALERT AND ORIENTED X3. C/O 9/10 ABDOMINAL PAIN, PT AWARE OF AVAILABILITY OF PAIN MEDS, DID NOT REQUEST THROUGHOUT THE DAY. LUNG SOUNDS CLEAR, CRACKLES NOTED TO LEFT BASE. AFLUTTER ON TELE, RATE 140s THROUGH THE MORNING, DIGOXIN LOADING DOSE GIVEN X2, HEART RATE DECREASED TO 120s-130s, BP 94/63 THIS EVENING. EVENING IV LASIX HELD PER DR. PERALTA. PT ASYMPTOMATIC WITH THE HYPOTENSION THROUGHOUT THE DAY. AMBULATING TO BATHROOM WITH FWW AND STANDBY ASSIST. PT HAS COLOSTOMY WHICH SHE EMPTIES AND CHANGES INDEPENDENTLY. TRACE EDEMA NOTED TO BLE. WILL CONTINUE TO MONITOR.
[2018-12-16 04:28] LABS: BASOPHILS ABSOLUTE AUTO 0.08 K/mm3 (0.00-0.23); BASOPHILS PERCENT AUTO 1 % (0-2); EOSINOPHILS ABSOLUTE AUTO 0.51 K/mm3 (0.00-0.68); EOSINOPHILS PERCENT AUTO 6 % (0-6); Hematocrit 37.6 % (33.0-51.0); Hemoglobin 10.7 g/dL (11.5-16.0); IMMATURE GRAN ABSOLUTE AUTO 0.06 K/mm3 (0.00-0.10); IMMATURE GRAN PERCENT AUTO 1 % (0-1); LYMPHOCYTES ABSOLUTE AUTO 1.68 K/mm3 (0.84-5.20); LYMPHOCYTES PERCENT AUTO 18 % (21-46); MONOCYTES ABSOLUTE AUTO 0.61 K/mm3 (0.16-1.47); MONOCYTES PERCENT AUTO 7 % (4-13); Mean Corpuscular HGB 24.9 pg (26.0-34.0); Mean Corpuscular HGB Conc 28.5 g/dL (31.5-36.5); NEUTROPHILS ABSOLUTE AUTO 6.19 K/mm3 (1.96-9.15); NEUTROPHILS PERCENT AUTO 68 % (41-73); Platelet Count 168 K/mm3 (150-400); RDW Coefficient Variation 24.8 % (11.7-14.2); RDW Standard Deviation 76.2 fL (35.1-46.3); Red Blood Cell Count 4.29 M/mm3 (3.80-5.20); White Blood Cell Count 9.13 K/mm3 (4.00-11.30)
[2018-12-16 04:30] LABS: Mean Corpuscular Volume 88 fL (80-100); Mean Platelet Volume 11.3 fL (9.1-12.4)
[2018-12-16 04:43] LABS: Alanine Aminotransfer (ALT/SGP 57 U/L (12-78); Albumin, Blood 2.5 g/dL (3.4-5.0); Albumin/Globulin Ratio 0.7 (0.8-1.8); Alk Phos 94 U/L (50-136); Anion Gap 4 mmol/L (6-16); Aspartate Aminotrans (AST/SGOT 49 U/L (12-37); Bilirubin, Total 0.8 mg/dL (0.1-1.0); Blood Urea Nitrogen 24 mg/dL (8-24); CO2, Blood 31 mmol/L (21-32); Calcium, Blood 8.7 mg/dL (8.5-10.1); Chloride, Blood 105 mmol/L (98-108); Creatinine, Blood 0.86 mg/dL (0.40-1.00); Globulin, Blood 3.4 g/dL (2.2-4.0); Glomerular Filtration Rate >60 (60-); Glucose, Blood 100 mg/dL (70-99); Magnesium, Blood 1.7 mg/dL (1.6-2.4); Potassium, Blood 4.1 mmol/L (3.5-5.5); Sodium, Blood 140 mmol/L (136-145); Total Protein, Blood 5.9 g/dL (6.4-8.2)
--- NOTE | 2018-12-16 05:06 | NUR ---
SUMMARY: ADMIT DAY 9 SEVERE ANEMIA NOW POD 3 ENDOSCOPY AND COLONOSCOPY ON [facility]ITAL[facility] SERVICE WITH DR. MEADOWS CONSULTING. BP HAS RISEN TO WNL BUT PT REMAINS TACHYCARDIC IN 120-130'S. TITRATED TO 1L O2 VIA NC AND MAINTAINS SPO2 >93%. MEDICATED WITH PRN TRAMADOL X1 @ HS FOR BACK AND ABD PAIN. PT CONTINUES TO MANAGE COLOSTOMY INDEPENDANTLY. HER STOMA APPEARS BEEFY RED AND MODERATELY INFLAMED; UNFORMED BROWN STOOL AND LOTS OF FLATUS OUTPUT. HGB CONTINUES TO RISE AND IS 10.7 THIS MORNING. CONTINUE TO MONITOR HEART RATE.
--- NOTE | 2018-12-16 17:26 | NUR ---
SHIFT SUMMARY PT RESTING IN BED THROUGHOUT THE DAY. VSS EXCEPT FOR AFLUTTER WITH RAPID RATE 130s-140s THROUGHOUT THE DAY. DR. PERALTA AWARE, WILL CONTINUE TO MONITOR. PT ALERT AND ORIENTED X3, C/O 03/18 ABDOMINAL PAIN, PT RECEIVED PAIN MEDS EARLY THIS AM, NO OTHER REQUESTS. LUNG SOUNDS CLEAR, CRACKLES IN THE BASES, HEART MURMUR NOTED ON AUSCULTATION. TRACE EDEMA TO BLE. PT SHOWERED THIS AFTERNOON AND CHANGED HER COLOSTOMY APPARATUS TODAY INDEPENDENTLY. C/O NUMBNESS TO RIGHT HAND THIS AM, STATES "IT HAPPENS SOMETIMES". WILL CONTINUE TO MONITOR.
[2018-12-17 04:15] LABS: BASOPHILS ABSOLUTE AUTO 0.08 K/mm3 (0.00-0.23); BASOPHILS PERCENT AUTO 1 % (0-2); EOSINOPHILS ABSOLUTE AUTO 0.53 K/mm3 (0.00-0.68); EOSINOPHILS PERCENT AUTO 5 % (0-6); Hematocrit 39.5 % (33.0-51.0); Hemoglobin 11.3 g/dL (11.5-16.0); IMMATURE GRAN ABSOLUTE AUTO 0.07 K/mm3 (0.00-0.10); IMMATURE GRAN PERCENT AUTO 1 % (0-1); LYMPHOCYTES ABSOLUTE AUTO 1.61 K/mm3 (0.84-5.20); LYMPHOCYTES PERCENT AUTO 17 % (21-46); MONOCYTES ABSOLUTE AUTO 0.59 K/mm3 (0.16-1.47); MONOCYTES PERCENT AUTO 6 % (4-13); Mean Corpuscular HGB Conc 28.6 g/dL (31.5-36.5); Mean Corpuscular Volume 87 fL (80-100); NEUTROPHILS ABSOLUTE AUTO 6.85 K/mm3 (1.96-9.15); NEUTROPHILS PERCENT AUTO 71 % (41-73); Platelet Count 175 K/mm3 (150-400); RDW Coefficient Variation 24.9 % (11.7-14.2); RDW Standard Deviation 78.3 fL (35.1-46.3); Red Blood Cell Count 4.52 M/mm3 (3.80-5.20); White Blood Cell Count 9.73 K/mm3 (4.00-11.30)
[2018-12-17 04:42] LABS: Magnesium, Blood 1.8 mg/dL (1.6-2.4)
[2018-12-17 05:00] LABS: Albumin, Blood 2.8 g/dL (3.4-5.0); Albumin/Globulin Ratio 0.8 (0.8-1.8); Bilirubin, Total 0.5 mg/dL (0.1-1.0); Bun/Creatinine Ratio 29.1 (12.0-20.0); Calcium, Blood 9.1 mg/dL (8.5-10.1); Creatinine, Blood 1.27 mg/dL (0.40-1.00); Globulin, Blood 3.5 g/dL (2.2-4.0); Potassium, Blood 4.8 mmol/L (3.5-5.5); Total Protein, Blood 6.3 g/dL (6.4-8.2)
--- NOTE | 2018-12-17 06:38 | NUR ---
SHIFT SUMMARY- CARE OF PATIENT TAKEN OVER AT APPROXIMATELY 0030 LAST NIGHT FROM PREVIOUS RNVIKY. PT IS AOX4. PLEASANT AND COOPERATIVE WITH CARE. AMBULATES WITH STANDBY ASSIST AND FWW TO BATHROOM. HEART RATE HAS DECREASED TO THE 110'S THROUGHOUT THE NIGHT, BP SLIGHLY HYPOTENSIVE- PT REMAINS ASYMPTOMATIC, ALL OTHER VSS. O2 SATS HAVE REMAINED >90% ON 1L VIA NASAL CANNULA. PT HAS DENIED PAIN SINCE OVERTAKING CARE EARLY THIS AM. NO OTHER CHANGES NOTED FROM INITIAL ASSESSMENT. WILL CONTINUE TO MONITOR AND REPORT TO ONCOMING SHIFT RN. BED IN LOW POSITION, CALL LIGHT IN REACH.
--- NOTE | 2018-12-17 10:01 | NUR ---
Pt converted to normal sinus rhythm. Dr. Payton here at the time, and she was notified. STates to continue current medication regime, and also will continue diuresis.
--- NOTE | 2018-12-17 17:46 | NUR ---
END OF SHIFT SUMMARY ASSUMED CARE OF PT @0700. PT ALERT AND ORIENTED, TALKING WITH STAFF. PT IN AFIB, HR 110'S. PT UP AND OUT OF BED MULTIPLE TIMES THIS SHIFT. PT WORKED WITH PATIENT, STATED THAT WITH PT ACTIVITY, HR CLIMBED UP TO 130'S AND THEN DROPPED BACK DOWN TO 110'S WITH REST. PT THEN CONVERTED TO NSR. CONVERSION STRIP IN CHART. HR HAS REMAINED 70'S - 80'S THIS SHIFT. PT TO REMAIN ON METOPROLOL AND DIGOXIN PER DR PERALTA AT THIS TIME. PT HAS BEEN RESTING FOR MAJORITY OF SHIFT. PT STARTED ON 1L NC, PT HAS BEEN ON RA SINCE 0900 AND HAS TOLERATED WELL. PT'S BLOOD PRESSURES HAVE REMAINED SLIGHTLY LOW, HAVE BEEN MONITORING CLOSELY. PT TO POSSIBLY GO HOME TOMORROW PER DOCTOR. WILL MONITOR PATIENT UNTIL SHIFT CHANGE.
--- NOTE | 2018-12-17 18:24 | NUR ---
POWER GLIDE DRESSING CHANGED THIS SHIFT PER PROTOCOL WITH HELP OF MARKO HELTON RN.
--- NOTE | 2018-12-18 04:20 | NUR ---
SHIFT SUMMARY: PATIENT SLEPT WELL THIS SHIFT, NO SKIN ISSUES, VSS, STABLE WITH WALKER AND SBA TO BATHROOM, ALERT AND ORIENTED, NO ISSUES THIS SHIFT. PATIENT TOLERATING METOPROLOL WELL EVEN WITH SBP AT APPROX 113. BED LOW AND LOCKED, CALL LIGHT WITHIN REACH AND USED APPROPRIATLY.
[2018-12-18] MEDS ORDERED: LANOXIN125 MCG PO (10:38)
[2018-12-18] MEDS ORDERED: SPIR25 PO (10:39)
[2018-12-18] MEDS ORDERED: FURO20 PO (10:39)
--- NOTE | 2018-12-18 15:23 | NUR ---
PT FALL 1000 PT FOUND LYING SUPINE IN FLOOR BY STAFF. THIS NURSE HEARD A CRASH AND RAN INTO PT'S ROOM. PT ON FLOOR, C/O OF A HEADACHE. PATIENT ALERT AND ORIENTED, STATES THAT CONCIOUSNESS WAS NOT LOST. PT STATES THAT SHE DIDN'T WANT TO BOTHER STAFF TO HELP HER GET UP, SO SHE GOT UP TO GET HER STUFF OUT OF THE CUPBOARD. PT STOOD ONTO STEPSTOOL AND PROCEEDED TO FALL OFF BACKWARDS. PT STATES HITTING HER "BOTTOM" FIRST AND THEN HIT HER HEAD ON TABLEFEET. DENIES HIP PAIN. VS STABLE ON GROUND. PT LIFTED BY 4 NURSES INTO BED. PT ASSESSED BY DR PERALTA. PT TO HAVE HEAD CT AND XRAYS PRIOR TO BEING CLEARED FOR DC. IRIS COMPLETED AND FILED. PT MEDICATED FOR HEADACHE PER EMAR. NO NEW BRUISING NOTED ON HIPS. ABRASION NOTED ON LEFT ELBOW. LEFT CAMILO TO DRY. WILL CONTINUE TO MONITOR PT FOR SIGNS OF BLEED, FX, OR OTHER COMPLICATIONS FROM FALL.
--- NOTE | 2018-12-18 16:00 | NUR ---
ASSESSED HIPS, COCCYX AREA FOR SIGNS OF BLEEDING/FX. PT DENYING PAIN IN AREA, NO NEW BRUISING NOTED. AREA WARM TO TOUCH.
--- NOTE | 2018-12-18 16:35 | NUR ---
END OF SHIFT SUMMARY ASSUMED CARE OF PT @0700. PT RESTING IN BED. PT AWAKES AND BEGINS SPEAKING WITH NURSING STAFF. PT ALERT AND ORIENTED. NSR STILL. VS STABLE. BP SLIGHTLY LOW BUT APPEARS TO BE BASELINE FOR PT. PT TO DC TODAY PER DR PERALTA. DC ORDERS PLACED AFTERNOON. PT THEN PROCEEDED TO FALL ON HIPS AND HEAD. SEE FALL NOTE. PT TO HEAD CT AND XRAYS. HEAD CT HAS COME BACK NEGATIVE FOR HEMORRHAGE. CURRENTLY WAITING FOR XRAYS TO BE INTERPRETED. IF XRAYS ARE CLEAR FROM DAMAGE FROM FALL, DR PERALTA TO DC PT. WILL CONTINUE TO MONITOR PT UNTIL DC OR SHIFT CHANGE.
--- NOTE | 2018-12-18 18:02 | NUR ---
DC UPDATE DR PERALTA ORDERING REPEATED HEAD CT FOR COMPARISON IN MORNING TO MAKE SURE PT IS FREE OF INTRCRANIAL BLEED/FX RELATED TO THE FALL THIS AFTERNOON. DC ORDERS HAVE BEEN CANCELLED AT THIS TIME. WILL CONTINUE TO MONITOR PT UNTIL SHIFT CHANGE.
--- NOTE | 2018-12-19 06:26 | NUR ---
SHIFT SUMMARY: PATIENT HAD 1X GETTING OOB WITHOUT CALLING IMMEDIATLY AFTER WAKING UP, PATIENT REORIENTED EASILY, STABLE WITH SBA ASSIST AND FWW. PATIETN SLEPT WELL MOST OF THE NIGHT, BED ALARM ON, BED LOW AND LOCKED, VSS.
--- NOTE | 2018-12-19 12:00 | NUR ---
DISCHARGE This RN spoke to Dr Payton regarding results from CT head obtained this morning. Provider states plan for discharge. Discharge completed with Hermila HANNON. Pt departed from unit at 1210, via wheelchair, accompanied by Merari HANNON.
--- NOTE | 2018-12-19 12:54 | NUR ---
BEGINNING SHIFT-DISCHAGE SUMMARY; RESUMED CARE OF PT AT 0730, REPORT TAKEN FROM ELIJAH LAND. PT WAS ON RA UPON ENTERING THE ROOM, O2 SATS WERE GREATER THAN 90%. PT WAS ALERT AND ORIENTED AND WAS ABLE TO RESPOND QUESTIONS APPROPRIATLY. PERFORMED OSTOMY CARE AND COMPLETLTY CHANGED OSTOMY BAG AND DRESSING. PT WAS ENCOURAGED TO WALK WITH ASSISTANCE AND WAS ABLE TO DRESS WITH MINIMAL ASSISTANCE. PT WAS EDUCATED ON FALL PERVENTION BEFORE DISCHARGE BY PHYSICAL THERAPY. DURING THE SHIFT I SPOKE TO FORMAT PROOFREADER RAMIREZ ONEAL REGARDING OSTOMY SUPPLIES FOR HOME. BEFORE DISCHARGE PT WAS GIVEN DISCHARGE INSTRUCTIONS REGARDING HOME CARE AND MEDICATIONS. POWERGLIDE WAS DISCONTINUED AT 1130 AND PT WAS WHEELED OUT VIA WHEELCHIAR.
== END 2018-12-19 12:12 | disposition home or self-care (01) | DRG 377 ==
LOC: ER 15:08 → PCU 17:45 → ICUW 17:45 → ERHOLD 17:45 → ICUW 19:48 → PCU 12-10 03:04
PROVIDERS: Emergency Medicine; Internal Medicine; ADMIT Family Medicine
PROC: 30233N1 Transfusion of Nonautologous Red Blood Cells into Peripheral Vein, Percutaneous Approach (ICD-10-PCS; principal; 2018-12-09)
PROC: 0W3P8ZZ Control Bleeding in Gastrointestinal Tract, Via Natural or Artificial Opening Endoscopic (ICD-10-PCS; 2018-12-10)
PROC: 0DBN8ZX Excision of Sigmoid Colon, Via Natural or Artificial Opening Endoscopic, Diagnostic (ICD-10-PCS; 2018-12-12)
DX: K31.811 Angiodysplasia of stomach and duodenum with bleeding (principal); J96.01 Acute respiratory failure with hypoxia; I50.43 Acute on chronic combined systolic (congestive) and diastolic (congestive) heart failure; E87.2 Acidosis; N17.9 Acute kidney failure, unspecified; R65.10 Systemic inflammatory response syndrome (SIRS) of non-infectious origin without acute organ dysfunction; I24.8 Other forms of acute ischemic heart disease; N39.0 Urinary tract infection, site not specified; I13.0 Hypertensive heart and chronic kidney disease with heart failure and stage 1 through stage 4 chronic kidney disease, or unspecified chronic kidney disease; D50.9 Iron deficiency anemia, unspecified; K21.9 Gastro-esophageal reflux disease without esophagitis; I35.0 Nonrheumatic aortic (valve) stenosis; G89.29 Other chronic pain; I25.10 Atherosclerotic heart disease of native coronary artery without angina pectoris; Z79.4 Long term (current) use of insulin; E11.9 Type 2 diabetes mellitus without complications; Z95.1 Presence of aortocoronary bypass graft; Z90.49 Acquired absence of other specified parts of digestive tract; Z93.3 Colostomy status; I95.9 Hypotension, unspecified; F17.210 Nicotine dependence, cigarettes, uncomplicated; R30.0 Dysuria; I34.0 Nonrheumatic mitral (valve) insufficiency; Z96.652 Presence of left artificial knee joint; K43.5 Parastomal hernia without obstruction or gangrene; E87.5 Hyperkalemia; N18.3 Chronic kidney disease, stage 3 (moderate); I12.9 Hypertensive chronic kidney disease with stage 1 through stage 4 chronic kidney disease, or unspecified chronic kidney disease; E66.9 Obesity, unspecified; Z68.24 Body mass index [BMI] 24.0-24.9, adult; W19.XXXA Unspecified fall, initial encounter; Y92.9 Unspecified place or not applicable; G43.009 Migraine without aura, not intractable, without status migrainosus; E87.6 Hypokalemia; E86.0 Dehydration; K44.9 Diaphragmatic hernia without obstruction or gangrene; E87.70 Fluid overload, unspecified; Z12.11 Encounter for screening for malignant neoplasm of colon; K63.5 Polyp of colon; I48.91 Unspecified atrial fibrillation; W08.XXXA Fall from other furniture, initial encounter; Y93.9 Activity, unspecified; Y92.239 Unspecified place in hospital as the place of occurrence of the external cause
CPT/HCPCS: 36415; 36430; 51702; 70450; 71045; 71046; 72110; 73522; 74176; 80048; 80053; 80069; 81001; 82550; 82553; 82607; 82728; 82746; 82803; 82947; 83540; 83550; 83605; 83735; 83880; 84100; 84443; 84484; 85014; 85018; 85025; 85027; 85045; 86850; 86900; 86901; 86923; 87040; 87077; 87086; 87147; 87186; 88305; 93005; 93010; 93306; 94760; 96361-59; 96374-59; 96375-59; 97116; 97161; 97530; 99285-25; C1751; C9113; J0610; J0696; J1160; J1815; J1940; J2405; J2704; J2916; J3480; J7030; J7120; P9016

== ENCOUNTER 2019-05-01 19:43 | Observation (INO) | payer MEDICARE ==
[~2019-05-01] VITALS: Ht 160 cm; Wt 62.6 kg
[~2019-05-01 19:43] MED LIST changes: +FURO20 PO; +INSULANPEN SC; +LANOXIN125 MCG PO; +NOVOLOG FL100 UNIT/1; +SPIR25 PO; +TRAM50 PO
[2019-05-01 20:19] LABS: BASOPHILS ABSOLUTE AUTO 0.07 K/mm3 (0.00-0.23); BASOPHILS PERCENT AUTO 1 % (0-2); EOSINOPHILS ABSOLUTE AUTO 0.53 K/mm3 (0.00-0.68); EOSINOPHILS PERCENT AUTO 6 % (0-6); Hematocrit 37.6 % (33.0-51.0); Hemoglobin 11.7 g/dL (11.5-16.0); IMMATURE GRAN ABSOLUTE AUTO 0.05 K/mm3 (0.00-0.10); IMMATURE GRAN PERCENT AUTO 1 % (0-1); LYMPHOCYTES ABSOLUTE AUTO 2.35 K/mm3 (0.84-5.20); LYMPHOCYTES PERCENT AUTO 25 % (21-46); MONOCYTES ABSOLUTE AUTO 0.56 K/mm3 (0.16-1.47); MONOCYTES PERCENT AUTO 6 % (4-13); Mean Corpuscular HGB 31.5 pg (26.0-34.0); Mean Corpuscular HGB Conc 31.1 g/dL (31.5-36.5); Mean Corpuscular Volume 101 fL (80-100); Mean Platelet Volume 11.9 fL (9.1-12.4); NEUTROPHILS ABSOLUTE AUTO 5.98 K/mm3 (1.96-9.15); NEUTROPHILS PERCENT AUTO 63 % (41-73); Platelet Count 247 K/mm3 (150-400); RDW Coefficient Variation 14.5 % (11.7-14.2); RDW Standard Deviation 54.6 fL (35.1-46.3); Red Blood Cell Count 3.71 M/mm3 (3.80-5.20); White Blood Cell Count 9.54 K/mm3 (4.00-11.30)
[2019-05-01 20:39] LABS: Albumin, Blood 3.3 g/dL (3.4-5.0); Albumin/Globulin Ratio 0.9 (0.8-1.8); Bilirubin, Total 0.2 mg/dL (0.1-1.0); Bun/Creatinine Ratio 35.7 (12.0-20.0); Calcium, Blood 8.5 mg/dL (8.5-10.1); Creatinine, Blood 1.43 mg/dL (0.40-1.00); Globulin, Blood 3.7 g/dL (2.2-4.0); Potassium, Blood 4.1 mmol/L (3.5-5.5)
[2019-05-01] MEDS ORDERED: Isosorbide Dini30 MG PO (23:30)
[2019-05-01] MEDS ORDERED: SITA100T2 PO (23:30)
[2019-05-01] MEDS ORDERED: ENTRESTO 24 MG1 EAC1 PO (23:31)
[2019-05-02 01:59] LABS: Bun/Creatinine Ratio 34.1 (12.0-20.0); Calcium, Blood 8.3 mg/dL (8.5-10.1); Creatinine, Blood 1.29 mg/dL (0.40-1.00); Potassium, Blood 3.8 mmol/L (3.5-5.5)
[2019-05-02 02:04] LABS: BASOPHILS ABSOLUTE AUTO 0.07 K/mm3 (0.00-0.23); BASOPHILS PERCENT AUTO 1 % (0-2); EOSINOPHILS PERCENT AUTO 6 % (0-6); Hematocrit 36.8 % (33.0-51.0); Hemoglobin 11.4 g/dL (11.5-16.0); IMMATURE GRAN ABSOLUTE AUTO 0.06 K/mm3 (0.00-0.10); IMMATURE GRAN PERCENT AUTO 1 % (0-1); LYMPHOCYTES ABSOLUTE AUTO 2.27 K/mm3 (0.84-5.20); LYMPHOCYTES PERCENT AUTO 26 % (21-46); MONOCYTES ABSOLUTE AUTO 0.47 K/mm3 (0.16-1.47); MONOCYTES PERCENT AUTO 5 % (4-13); Mean Corpuscular HGB 31.2 pg (26.0-34.0); Mean Corpuscular Volume 101 fL (80-100); Mean Platelet Volume 11.9 fL (9.1-12.4); NEUTROPHILS ABSOLUTE AUTO 5.38 K/mm3 (1.96-9.15); NEUTROPHILS PERCENT AUTO 62 % (41-73); Platelet Count 222 K/mm3 (150-400); RDW Coefficient Variation 14.6 % (11.7-14.2); RDW Standard Deviation 54.7 fL (35.1-46.3); Red Blood Cell Count 3.65 M/mm3 (3.80-5.20); White Blood Cell Count 8.75 K/mm3 (4.00-11.30)
--- NOTE | 2019-05-02 02:39 | NUR ---
PATEINT ARRIVED TO THE FLOOR AROUND 0120 VIA WC, INDEPENDANTLY TRANSFERRED TO THE BED. SHE IS AOX3. WAS ADMITTED FOR ABDOMINAL PAIN, INTRACTABLE NAUSEA AND VOMITING. REPORTS SHE HAS HAD ABDOMINAL PAIN FOR 2-3 DAYS NOW AND WAS CONCERNED. WENT HOME FOR THE NIGHT. ADMISSION ASSESSMENT AND HISTORY COMPLETED, SEE CHART FOR DETAILS. PATIENT MADE NPO PER ORDERS. IV FLUIDS WAS STARTED, GAVE HER MORPHINE 2 MG FOR PAIN OF 10/10. NO NAUSEA AT THIS TIME, NO VOMITING NOTED. HEPARIN GIVEN PER ORDERS. PATIENT ABLE TO MOVE ABOUT ON OWN IN ROOM, CALL LIGHT IN REACH. ENCOURAGED TO CALL FOR ASSISTANCE. SHE REPORTS SHE EMPTIES HER OWN OSTOMY, GAVE HER SUPPLIES FOR THIS.
--- NOTE | 2019-05-02 05:08 | NUR ---
SHIFT SUMMARY: URIAH HAS BEEN PLEASANT AND COOPERATIVE. SHE GOT HERE EARLY THIS MORNING. SHE GOT HER PAIN MEDICATION AND THEN WAS ONLY UP TO THE BATHROOM X2 THIS NIGHT. OTHER THEN THAT SHE HAS BEEN SLEEPING COMFORTABLY, WITH CALL LIGHT IN REACH AND NO OTHER CHANGES TO REPORT.
--- NOTE | 2019-05-02 10:24 | NUR ---
SPOKE WITH MEDICAL RECORDS DEPARTMENT AT [facility] IN [place], [place], RECORDS WILL BE FAXED AND IMAGING WILL BE PUSHED TO OUR RADIOLOGY DEPT.
--- NOTE | 2019-05-02 10:38 | NUR ---
[facility] UNABLE TO PUSH IMAGES, WILL SEND REPORTS VIA FAX.
--- NOTE | 2019-05-02 11:03 | NUR ---
SPOKE WITH DR. GUTIERREZ WITH CARDIOLOGY, HE REPORTS THAT THE PT MAY BE D/C'D HOME AND FOLLOW UP OUTPATIENT IF HR IS STABLE WITH AMBULATION. PT AMBULATED WITH EVP GENERAL COUNSEL ON VOCERA, PT HR ELEVATED TO HIGH 140'S JUST GETTING OUT OF BED AND SUSTAINED THAT RATE WHILE AMBULATING 100 FT IN [place]. PT HR AT BASELINE THIS AM 120'S AT REST. PT WAS ASYMPTOMATIC.
--- NOTE | 2019-05-02 18:11 | NUR ---
SHIFT SUMMARY. A&OX4, INEPENDENT IN ROOM. PT DENIES SOB, N/V. PT C/O ABD PAIN, MANAGED WELL WITH CURRENT ORDERS. DR. CHADWICK CONSULTED THIS AM. PAST MEDICAL RECORDS RECIEVED. NO NEW CHANGES OR CONCERNS.
--- NOTE | 2019-05-03 05:30 | NUR ---
SHIFT SUMMARY PT SLEPT FAIR, MEDICATED X1 FOR ABDOMINAL DISCOMFORT. NO ACUTE EVENTS OVER NIGHT, WILL CONTINUE TO MONITOR.
[2019-05-03 05:45] LABS: Bun/Creatinine Ratio 28.8 (12.0-20.0); Calcium, Blood 8.2 mg/dL (8.5-10.1); Creatinine, Blood 1.11 mg/dL (0.40-1.00); Potassium, Blood 4.3 mmol/L (3.5-5.5)
--- NOTE | 2019-05-03 15:11 | NUR ---
REPORT GIVEN TO MALLORY CORRAL RN AT [facility]. ATTEMPTED TO CONTACT PT'S TWICE IN THE PAST 30 MINUTES, LEFT TWO MESSAGES THAT PT WAS BEING TRANSPORTED TO [facility] IN THE NEXT 45 MINUTES, IS AWARE THAT THE TRANSFER WAS TO OCCUR WE SPOKE ON THE PHONE EARLIER, AGREED WITH PLAN OF CARE.
--- NOTE | 2019-05-03 16:26 | NUR ---
1609 PT [place] TRANSFERED TO [facility] VIA GURNEY TRANSPORT. PT MEDICATED FOR PAIN PRIOR TO TRANSFER. AT BEDSIDE AT TIME OF TRANSFER. IV LEFT IN PLACE FOR TRANSFER.
[2019-07-01] MEDS ORDERED: NITR.4SL SL (14:45)
[2019-07-01] MEDS ORDERED: Lipitor80 MG PO (14:45)
[2019-07-01] MEDS ORDERED: FENO145 PO (14:45)
[2019-07-01] MEDS ORDERED: ACID CONTROL PO (14:46)
[2019-07-01] MEDS ORDERED: NYSTRITC TOP (14:47)
[2019-07-01] MEDS ORDERED: VIT D3 PO (14:48)
[2019-07-01] MEDS ORDERED: AIMOVIG AU140 MG/1 M SC (14:49)
[2019-07-01] MEDS ORDERED: Flonase 0.05% N16 GM (14:49)
[2019-07-01] MEDS ORDERED: ONDA4 PO (14:50)
[2019-07-01] MEDS ORDERED: Narcan 0.40.4 MG/ML (14:51)
== END 2019-05-03 16:09 | disposition short-term general hospital (02) ==
LOC: ER 19:43 → MEDS 19:44 → ENPENDDIS 05-03 10:30 → MEDS 05-03 16:09
PROVIDERS: Internal Medicine; Physician Assistant; ADMIT Hospitalist
DX: K56.699 Other intestinal obstruction unspecified as to partial versus complete obstruction (principal); I13.0 Hypertensive heart and chronic kidney disease with heart failure and stage 1 through stage 4 chronic kidney disease, or unspecified chronic kidney disease; E11.22 Type 2 diabetes mellitus with diabetic chronic kidney disease; N18.3 Chronic kidney disease, stage 3 (moderate); I50.22 Chronic systolic (congestive) heart failure; I25.10 Atherosclerotic heart disease of native coronary artery without angina pectoris; I35.0 Nonrheumatic aortic (valve) stenosis; E11.51 Type 2 diabetes mellitus with diabetic peripheral angiopathy without gangrene; I73.9 Peripheral vascular disease, unspecified; Z87.891 Personal history of nicotine dependence; Z79.02 Long term (current) use of antithrombotics/antiplatelets; Z79.4 Long term (current) use of insulin; Z79.899 Other long term (current) drug therapy; Z88.6 Allergy status to analgesic agent; Z88.5 Allergy status to narcotic agent; Z91.09 Other allergy status, other than to drugs and biological substances; Z91.040 Latex allergy status; Z88.2 Allergy status to sulfonamides; Z88.8 Allergy status to other drugs, medicaments and biological substances
CPT/HCPCS: 36415; 74176; 80048; 80053; 82947; 83605; 85025; 96360; 96361; 96372; 96374; 96376; 99285-25; A9270; G0378; J1644; J2270; J7030

== ENCOUNTER 2019-07-02 08:53 | Day surgery (SDC) | payer MEDICARE ==
[~2019-07-02] VITALS: Ht 160 cm; Wt 64.1 kg
[~2019-07-02 08:53] MED LIST changes: +ACID CONTROL PO; +AIMOVIG AU140 MG/1 M SC; +ENTRESTO 24 MG1 EAC1 PO; +Lipitor80 MG PO; +NYSTRITC TOP; +Narcan 0.40.4 MG/ML; +ONDA4 PO; +VIT D3 PO
[2019-07-02] MEDS ORDERED: OXYC5 (09:53)
--- NOTE | 2019-07-02 15:20 | NUR ---
PT VERBALIZED UNDERSTANDING OF D/C INSTRUCTIONS. LEFT ARM TR BAND HAS BEEN REMOVED, LIGHT PRESSURE DRESSING ON ALONG WITH ARM BOARD. DR. LEYVA IN ROOM TO DISCUSS PLAN OF CARE WITH PT. PT ON HIS WAY TO GIVE HER A RIDE HOME. PT AMBULATES TO RESTROOM WITH STEADY GAIT. UNMEASURED VOID. LEFT ARM REMAINS STABLE POST GETTING DRESSED. PAPERWORK PROVIDED TO PT IN [facility].
--- NOTE | 2019-07-02 15:36 | NUR ---
IV DC'D, CATH INTACT. PT GIVEN DC INSTRUCTIONS, VERBALIZED UNDERSTANDING. LEFT RADIAL SITE BRUISED, SORE TO THE TOUCH. PT REQUESTED PRESSURE DRESSING TO REMAIN ON LEFT WRIST UNDER SPLINT "BECAUSE IT FEELS BETTER THAT WAY". PT STATES SHE WILL REMOVE PRESSURE DRESSING AT 1800 TONIGHT, OR SOONER IF ANY NEURO DEFICITS TO HAND OR FINGERS. PT OUT TO CAR VIA W/C.
== END 2019-07-02 16:55 | disposition home or self-care (01) ==
LOC: MHTC 08:53
DX: T82.855A Stenosis of coronary artery stent, initial encounter (principal); T82.858A Stenosis of other vascular prosthetic devices, implants and grafts, initial encounter; I25.10 Atherosclerotic heart disease of native coronary artery without angina pectoris; I35.0 Nonrheumatic aortic (valve) stenosis; I48.0 Paroxysmal atrial fibrillation; I50.9 Heart failure, unspecified; E78.00 Pure hypercholesterolemia, unspecified; I25.2 Old myocardial infarction; N18.9 Chronic kidney disease, unspecified; E11.9 Type 2 diabetes mellitus without complications; M19.90 Unspecified osteoarthritis, unspecified site; F17.210 Nicotine dependence, cigarettes, uncomplicated; Z88.2 Allergy status to sulfonamides; Z79.899 Other long term (current) drug therapy; Z79.02 Long term (current) use of antithrombotics/antiplatelets; Z88.5 Allergy status to narcotic agent; Z88.8 Allergy status to other drugs, medicaments and biological substances; Z88.6 Allergy status to analgesic agent
CPT/HCPCS: 82947; 93005; 93010; 93457; 99152; 99153; C1769; C1894; J1200; J1644; J1720; J2250; J3010; J3490; J7030; Q9967

== ENCOUNTER → 2019-09-04 | Outpatient (CLI) | payer MEDICARE ==
[~2019-09-04] MED LIST changes: +OXYC5
[2019-09-04 13:17] LABS: Creatinine Urine 56.3 mg/dL (27.00-270.00); Protein, Urine Quantitative 7.1 mg/dL (0.0-11.9)
[2019-09-04 13:23] LABS: Microalbumin, Urine Quant. 22.4 mg/L (0.000-20.000)
== END | disposition home or self-care (01) ==
LOC: LAB SHORT 09:30 → LAB 09:30 → LAB FUT 08-30 14:55
PROVIDERS: Internal Medicine Nephrology
DX: N18.3 Chronic kidney disease, stage 3 (moderate) (principal); D63.1 Anemia in chronic kidney disease; N25.81 Secondary hyperparathyroidism of renal origin; E55.9 Vitamin D deficiency, unspecified; E78.00 Pure hypercholesterolemia, unspecified; R76.9 Abnormal immunological finding in serum, unspecified; R94.5 Abnormal results of liver function studies; R94.6 Abnormal results of thyroid function studies; D51.8 Other vitamin B12 deficiency anemias; D52.8 Other folate deficiency anemias; D50.9 Iron deficiency anemia, unspecified
CPT/HCPCS: 81050; 82043; 82570; 84156; 84300

== ENCOUNTER → 2020-07-11 | Outpatient (CLI) | payer MEDICARE | END | disposition home or self-care (01) | LOC: LAB SHORT 09:00 → LAB 09:00 → LAB FUT 07-07 11:50 | PROVIDERS: Internal Medicine Nephrology | DX: N18.30 Chronic kidney disease, stage 3 unspecified (principal); D63.1 Anemia in chronic kidney disease; N25.81 Secondary hyperparathyroidism of renal origin; E55.9 Vitamin D deficiency, unspecified; E78.00 Pure hypercholesterolemia, unspecified; R76.9 Abnormal immunological finding in serum, unspecified; R94.5 Abnormal results of liver function studies; R94.6 Abnormal results of thyroid function studies; D51.8 Other vitamin B12 deficiency anemias; D52.8 Other folate deficiency anemias | CPT/HCPCS: 81050 ==

== ENCOUNTER 2020-07-20 11:29 | Inpatient (IN) | payer MEDICARE ==
[~2020-07-20] VITALS: Ht 160 cm; Wt 62.2 kg
[~2020-07-20 11:29] MED LIST changes: -AIMOVIG AU140 MG/1 M SC; -Amitriptyline100 MG PO; -BUTONI; -CLOP75 PO; -INSULANPEN SC; -Lipitor80 MG PO; -METO50ER PO; -NOVOLOG FL100 UNIT/1
[2020-07-20 12:35] LABS: BASOPHILS ABSOLUTE AUTO 0.04 K/mm3 (0.00-0.23); BASOPHILS PERCENT AUTO 0 % (0-2); EOSINOPHILS ABSOLUTE AUTO 0.02 K/mm3 (0.00-0.68); EOSINOPHILS PERCENT AUTO 0 % (0-6); Hematocrit 43.7 % (33.0-51.0); Hemoglobin 13.4 g/dL (11.5-16.0); IMMATURE GRAN ABSOLUTE AUTO 0.09 K/mm3 (0.00-0.10); IMMATURE GRAN PERCENT AUTO 1 % (0-1); LYMPHOCYTES ABSOLUTE AUTO 0.73 K/mm3 (0.84-5.20); LYMPHOCYTES PERCENT AUTO 6 % (21-46); MONOCYTES ABSOLUTE AUTO 0.43 K/mm3 (0.16-1.47); MONOCYTES PERCENT AUTO 3 % (4-13); Mean Corpuscular HGB Conc 30.7 g/dL (31.5-36.5); Mean Corpuscular Volume 95 fL (80-100); NEUTROPHILS ABSOLUTE AUTO 11.74 K/mm3 (1.96-9.15); NEUTROPHILS PERCENT AUTO 90 % (41-73); RDW Coefficient Variation 17.1 % (11.7-14.2); RDW Standard Deviation 59.2 fL (35.1-46.3); Red Blood Cell Count 4.62 M/mm3 (3.80-5.20); White Blood Cell Count 13.05 K/mm3 (4.00-11.30)
[2020-07-20 12:52] LABS: Albumin, Blood 3.4 g/dL (3.4-5.0); Albumin/Globulin Ratio 0.8 (0.8-1.8); Bilirubin, Total 0.6 mg/dL (0.1-1.0); Calcium, Blood 9.5 mg/dL (8.5-10.1); Creatinine, Blood 1.19 mg/dL (0.40-1.00); Potassium, Blood 4.2 mmol/L (3.5-5.5); Total Protein, Blood 7.4 g/dL (6.4-8.2)
[2020-07-20 12:52] LABS: Source, Urine Catheter
[2020-07-20 12:54] LABS: Mean Platelet Volume 10.4 fL (9.1-12.4); Platelet Count 243 K/mm3 (150-400)
[2020-07-20 13:01] LABS: Appearance, Urine Hazy (Clear); Blood, Urine 3+ (Neg); Color, Urine Yellow (P-Yellow); Glucose Qualitative, Urine Neg (Neg); Ketones, Urine 1+ (Neg); Leukocyte Esterase, Urine 1+ (Neg); Nitrite, Urine Pos (Neg); Protein, Urine 3+ (Neg); Specific Gravity, Urine 1.025 (1.003-1.022); Urobilinogen, Urine 1+ (Normal)
[2020-07-20 13:18] LABS: Bilirubin, Urine 1+ (Neg)
[2020-07-20 13:20] LABS: Bacteria Many /hpf; Squamous Epithelial Cells Mod /hpf (Few)
[2020-07-20] MEDS ORDERED: Amitriptyline100 MG PO (16:14)
[2020-07-20 16:16] LABS: International Normalized Ratio 1.08; Prothrombin Time Results 11.5 Sec (9.7-11.5)
[2020-07-20] MEDS ORDERED: METO25ER PO (16:19)
[2020-07-20] MEDS ORDERED: BUTONI (16:19)
[2020-07-20] MEDS ORDERED: CLOP75 PO (16:19)
[2020-07-20] MEDS ORDERED: SITA100T2 PO (16:21)
[2020-07-20] MEDS ORDERED: NOVOLOG FL100 UNIT/3 SC (16:21)
[2020-07-20] MEDS ORDERED: FENO145 PO (16:21)
[2020-07-20] MEDS ORDERED: AIMOVIG AU70 MG/1 ML SC (16:23)
[2020-07-20] MEDS ORDERED: FLUTICASONE PRO16 GM (16:24)
[2020-07-20] MEDS ORDERED: Isosorbide Dini30 MG PO (16:25)
[2020-07-20] MEDS ORDERED: Lipitor80 MG PO (16:30)
[2020-07-20] MEDS ORDERED: BASAGLAR K100 UNIT/1 (16:30)
[2020-07-20 18:37] LABS: Base Excess Venous -1.4 mmol/L; Bicarbonate Venous 23.1 mmol/L (24.0-30.0); PCO2 Venous 40.3 mmHg (38-42); PO2 Venous 49.2 mmHg (38-42); pH Blood Venous 7.38 (7.34-7.37)
--- NOTE | 2020-07-20 18:45 | NUR ---
PATIENT ARRIVED FROM ED VIA GURNEY, TRANSFERED VIA SLIDER SHEET. PATIENT ORIENTED TO SELF ONLY, PULLING AT LINES AND CLOTHING, ATTEMPTING TO GET OUT OF BED. PATIENT IS KICKING AND SWINGING ARMS, WILL CALM DOWN WITH VERBAL COMMANDS AT TIMES. NO SIGNS OF ACUTE DISTRESS AT THIS TIME, WCTM.
--- NOTE | 2020-07-20 21:00 | NUR ---
1900 REPORT RECEIVED FROM MERLYN. 193 PT VERY COMBATIVE AND ATTEMPTING PULL OFF COLOSTOMY, TELEMETRY AND IV WHILE ATTEMPTING TO HIT AND BITE STAFF; PT PLACED IN BILATERAL SOFT WRIST RESTRAINTS AND DILIP VEST; ALERT PERSON ONLY. 2029 PT RESTING MORE COMFORTABLY IN BED.
[2020-07-20 21:04] LABS: U Amphetamine Screen Not Detected; U Barbituate Screen Not Detected; U Benzodiazapine Screen Not Detected; U Buprenorphine Screen Not Detected; U Cannabinoids Screen Not Detected; U Cocaine Screen Not Detected; U Methadone Screen Not Detected; U Methamphetamine Screen Not Detected; U Opiates Screen Not Detected; U Oxycodone Screen Not Detected; U Phencyclidine Screen Not Detected; U Propoxyphene Screen Not Detected
[2020-07-21 04:20] LABS: BASOPHILS ABSOLUTE AUTO 0.05 K/mm3 (0.00-0.23); BASOPHILS PERCENT AUTO 1 % (0-2); EOSINOPHILS ABSOLUTE AUTO 0.04 K/mm3 (0.00-0.68); EOSINOPHILS PERCENT AUTO 1 % (0-6); Hematocrit 37.5 % (33.0-51.0); Hemoglobin 11.1 g/dL (11.5-16.0); IMMATURE GRAN ABSOLUTE AUTO 0.03 K/mm3 (0.00-0.10); IMMATURE GRAN PERCENT AUTO 0 % (0-1); LYMPHOCYTES ABSOLUTE AUTO 0.94 K/mm3 (0.84-5.20); LYMPHOCYTES PERCENT AUTO 11 % (21-46); MONOCYTES ABSOLUTE AUTO 0.74 K/mm3 (0.16-1.47); MONOCYTES PERCENT AUTO 8 % (4-13); Mean Corpuscular HGB 28.5 pg (26.0-34.0); Mean Corpuscular HGB Conc 29.6 g/dL (31.5-36.5); Mean Corpuscular Volume 96 fL (80-100); Mean Platelet Volume 10.3 fL (9.1-12.4); NEUTROPHILS ABSOLUTE AUTO 7.02 K/mm3 (1.96-9.15); NEUTROPHILS PERCENT AUTO 80 % (41-73); Platelet Count 189 K/mm3 (150-400); RDW Coefficient Variation 17.1 % (11.7-14.2); RDW Standard Deviation 60.5 fL (35.1-46.3); Red Blood Cell Count 3.89 M/mm3 (3.80-5.20); White Blood Cell Count 8.82 K/mm3 (4.00-11.30)
--- NOTE | 2020-07-21 04:36 | NUR ---
SHIFT SUMMARY: 75 Y/O FEMALE RESTED COMFORTABLY ALL SHIFT; PT ALERT AND ORIENTED X 1; PT REQUIRED RESTRAINTS (DILIP VEST AND BILATERAL SOFT WRIST) AFTER ATTEMPTS CLIMB OOB, PULLING AT LINES/TELEMETRY; VITAL SIGNS STABLE; BED ALARM APPLIED, BED LOW POSITION WITH CALL LIGHT AT SIDE.
[2020-07-21 04:38] LABS: Bun/Creatinine Ratio 16.4 (12.0-20.0); Calcium, Blood 8.3 mg/dL (8.5-10.1); Creatinine, Blood 1.1 mg/dL (0.40-1.00); Potassium, Blood 3.6 mmol/L (3.5-5.5)
--- NOTE | 2020-07-21 09:20 | NUR ---
patient agreed to allow student to participate in care
--- NOTE | 2020-07-21 10:37 | NUR ---
BILATERAL WRIST RESTRAINTS OFF AT THIS TIME, FOLLOWING INSTRUCTIONS, WILL CONTINUE TO MONITOR.
--- NOTE | 2020-07-21 17:42 | NUR ---
SHIFT SUMMARY; A/A/OX4 DURING SHIFT. IN RESTRAINTS FOR CONFUSION AND SAFTEY AT BEGINNING OF SHIFT. RESTRAINTS DC'D. DIRECTABLE AND COOPERATIVE WITH CARE. COLOSTOMY BAG CHANGED TODAY, ATTENDS IN PLACE FOR INTERMITANT URGENCY. VSS, ON RA WITH SATS OF 94%. STATUS CHANGED TO MEDICAL TODAY, WILL CONTINUE TO MONITOR AND TREAT UNTIL TRANSFER TO MEDICAL FLOOR.
--- NOTE | 2020-07-21 18:35 | NUR ---
PCU TRANSFER- PT ARRIVED TO ROOM 306 VIA W/C. SBA INTO BED. PT A/OX4, DENIES ANY COMPLAINTS AT THIS TIME. PT ORIENTED TO ROOM AND CALL SYSTEM, CALL LIGHT IN REACH. BED ALARM ON.
--- NOTE | 2020-07-21 22:21 | NUR ---
TEMP 101.1 AT 1999. COVERS REMOVED AND NOTIFIED. PATIENT UNABLE TO TYLENOL OR IBUPROPHEN; WILL APPLY ICE IF TEMP DOES NOT DROP SIGNIFICANTLY
[2020-07-22 04:36] LABS: BASOPHILS ABSOLUTE AUTO 0.03 K/mm3 (0.00-0.23); BASOPHILS PERCENT AUTO 1 % (0-2); EOSINOPHILS ABSOLUTE AUTO 0.29 K/mm3 (0.00-0.68); EOSINOPHILS PERCENT AUTO 5 % (0-6); Hematocrit 34.8 % (33.0-51.0); Hemoglobin 10.8 g/dL (11.5-16.0); IMMATURE GRAN ABSOLUTE AUTO 0.05 K/mm3 (0.00-0.10); IMMATURE GRAN PERCENT AUTO 1 % (0-1); LYMPHOCYTES ABSOLUTE AUTO 0.57 K/mm3 (0.84-5.20); LYMPHOCYTES PERCENT AUTO 9 % (21-46); MONOCYTES ABSOLUTE AUTO 0.49 K/mm3 (0.16-1.47); MONOCYTES PERCENT AUTO 8 % (4-13); Mean Corpuscular HGB 29.8 pg (26.0-34.0); Mean Corpuscular Volume 96 fL (80-100); Mean Platelet Volume 10.2 fL (9.1-12.4); NEUTROPHILS PERCENT AUTO 78 % (41-73); Platelet Count 154 K/mm3 (150-400); RDW Standard Deviation 59.3 fL (35.1-46.3); Red Blood Cell Count 3.63 M/mm3 (3.80-5.20); White Blood Cell Count 6.43 K/mm3 (4.00-11.30)
--- NOTE | 2020-07-22 04:37 | NUR ---
OFFSET PRESSMAN SUMMARY Patient Alert and Oriented X3 all night. Cooperative with care. Minimal abdonimal pain with palpation which the patient states is her baseline. Right AC IV dc'd as arm was getting painful and swollen below the IV site which was secured under towels to keep arm straight. Skin around colostomy stoma has some red areas which were very sensitive to skin prepused prior to replacing bag. No complaints of painful urination. patient is voiding around 400ml per void
[2020-07-22 04:52] LABS: Bun/Creatinine Ratio 17.4 (12.0-20.0); Calcium, Blood 8.7 mg/dL (8.5-10.1); Creatinine, Blood 1.09 mg/dL (0.40-1.00); Potassium, Blood 3.7 mmol/L (3.5-5.5)
[2020-07-22] MEDS ORDERED: NITR100CA PO (14:38)
--- NOTE | 2020-07-22 15:40 | NUR ---
A+O, left with family, removed iv, stated she wanted to do colostomy at home rather than wait to do it here, reviewed stay, medications, follow up orders, pt stated she would call and set up an appointment to see a dr, escorted to truck in , assisted into seat
[2020-07-23 08:09] LABS: COMPLEMENT C3, SERUM 133 mg/dL (82-167); COMPLEMENT C4, SERUM 30 mg/dL (12-38)
[2020-07-23 17:09] LABS: ANTI-DSDNA ANTIBODIES 2 IU/mL (0-9)
== END 2020-07-22 15:21 | disposition home or self-care (01) | DRG 871 ==
LOC: ER 11:29 → PCU 11:30 → MEDS 07-21 18:14 → ENPENDDIS 07-22 10:40 → MEDS 07-22 15:21
PROVIDERS: Emergency Medicine; ADMIT Internal Medicine
DX: A41.51 Sepsis due to Escherichia coli [E. coli] (principal); G92 Toxic encephalopathy; I50.22 Chronic systolic (congestive) heart failure; I13.0 Hypertensive heart and chronic kidney disease with heart failure and stage 1 through stage 4 chronic kidney disease, or unspecified chronic kidney disease; N39.0 Urinary tract infection, site not specified; Z79.4 Long term (current) use of insulin; I25.10 Atherosclerotic heart disease of native coronary artery without angina pectoris; Z93.3 Colostomy status; I35.0 Nonrheumatic aortic (valve) stenosis; Z96.652 Presence of left artificial knee joint; Z90.49 Acquired absence of other specified parts of digestive tract; Z87.891 Personal history of nicotine dependence; N18.30 Chronic kidney disease, stage 3 unspecified; E86.0 Dehydration; E11.22 Type 2 diabetes mellitus with diabetic chronic kidney disease
CPT/HCPCS: 36415; 70450; 71045; 74176; 80048; 80053; 81001; 82803; 82947; 83605; 83690; 84484; 85025; 85610; 85651; 85730; 86160; 86162; 86225; 86226; 87040; 87077; 87086; 87186; 93005; 93010; 96365; 96375; 96376; 99285-25; A9270; A9270-GY; G0480; J0696; J1630; J1650; J2060; J2270; J7030; J7120; P9612

== ENCOUNTER 2020-11-18 10:50 | Emergency (ER) | payer MEDICARE ==
[~2020-11-18] VITALS: Ht 165.1 cm; Wt 56.7 kg
[~2020-11-18 10:50] MED LIST changes: +AIMOVIG AU70 MG/1 ML SC; +Amitriptyline100 MG PO; +BASAGLAR K100 UNIT/1; +BUTONI; +CLOP75 PO; +FLUTICASONE PRO16 GM; +Lipitor80 MG PO; +METO25ER PO; +NITR100CA PO; +NOVOLOG FL100 UNIT/3 SC
[2020-11-18 11:55] LABS: BASOPHILS ABSOLUTE AUTO 0.05 K/mm3 (0.00-0.23); BASOPHILS PERCENT AUTO 1 % (0-2); EOSINOPHILS ABSOLUTE AUTO 0.24 K/mm3 (0.00-0.68); EOSINOPHILS PERCENT AUTO 3 % (0-6); Hematocrit 36.1 % (33.0-51.0); Hemoglobin 11.1 g/dL (11.5-16.0); IMMATURE GRAN ABSOLUTE AUTO 0.03 K/mm3 (0.00-0.10); IMMATURE GRAN PERCENT AUTO 0 % (0-1); LYMPHOCYTES ABSOLUTE AUTO 0.98 K/mm3 (0.84-5.20); LYMPHOCYTES PERCENT AUTO 12 % (21-46); MONOCYTES ABSOLUTE AUTO 0.38 K/mm3 (0.16-1.47); MONOCYTES PERCENT AUTO 5 % (4-13); Mean Corpuscular HGB 29.7 pg (26.0-34.0); Mean Corpuscular HGB Conc 30.7 g/dL (31.5-36.5); Mean Corpuscular Volume 97 fL (80-100); Mean Platelet Volume 11.5 fL (9.1-12.4); NEUTROPHILS ABSOLUTE AUTO 6.64 K/mm3 (1.96-9.15); NEUTROPHILS PERCENT AUTO 80 % (41-73); Platelet Count 235 K/mm3 (150-400); RDW Coefficient Variation 16.6 % (11.7-14.2); Red Blood Cell Count 3.74 M/mm3 (3.80-5.20); White Blood Cell Count 8.32 K/mm3 (4.00-11.30)
[2020-11-18 12:04] LABS: International Normalized Ratio 1.1; Prothrombin Time Results 11.7 Sec (9.7-11.5)
[2020-11-18 12:09] LABS: Alanine Aminotransfer (ALT/SGP 15 U/L (12-78); Albumin, Blood 3.6 g/dL (3.4-5.0); Albumin/Globulin Ratio 0.9 (0.8-1.8); Alk Phos 81 U/L (50-136); Anion Gap 10 mmol/L (6-16); Aspartate Aminotrans (AST/SGOT 18 U/L (12-37); Bilirubin, Total 0.6 mg/dL (0.1-1.0); Blood Urea Nitrogen 26 mg/dL (8-24); Bun/Creatinine Ratio 17.6 (12.0-20.0); CO2, Blood 25 mmol/L (21-32); Calcium, Blood 9.6 mg/dL (8.5-10.1); Chloride, Blood 109 mmol/L (98-108); Creatinine, Blood 1.48 mg/dL (0.40-1.00); Globulin, Blood 3.9 g/dL (2.2-4.0); Glomerular Filtration Rate 37 (60-); Glucose, Blood 157 mg/dL (70-99); Potassium, Blood 3.6 mmol/L (3.5-5.5); Sodium, Blood 144 mmol/L (136-145); Total Protein, Blood 7.5 g/dL (6.4-8.2); Troponin I <0.015 ng/mL (0.000-0.040)
[2020-11-18] MEDS ORDERED: AIMOVIG AU140 MG/1 M SC (12:36)
[2020-11-18] MEDS ORDERED: AMIT25 PO (12:36)
[2020-11-18] MEDS ORDERED: CLOP75 PO (12:39)
[2020-11-18] MEDS ORDERED: BUTONI (12:39)
[2020-11-18] MEDS ORDERED: Isosorbide Mono30 MG PO (12:40)
[2020-11-18] MEDS ORDERED: SITA100T2 PO (12:40)
[2020-11-18] MEDS ORDERED: FENO145 PO (12:40)
[2020-11-18] MEDS ORDERED: METO25ER PO (12:41)
[2020-11-18] MEDS ORDERED: NURTEC ODT75 MG SL (12:41)
[2020-11-18 15:44] LABS: Source, Urine Clean Catch
[2020-11-18 15:46] LABS: Appearance, Urine Hazy (Clear); Bilirubin, Urine Neg (Neg); Blood, Urine 2+ (Neg); Color, Urine Yellow (P-Yellow); Glucose Qualitative, Urine Neg (Neg); Ketones, Urine Neg (Neg); Leukocyte Esterase, Urine 2+ (Neg); Nitrite, Urine Pos (Neg); Protein, Urine Neg (Neg); Urobilinogen, Urine NORM (Normal)
[2020-11-18 15:56] LABS: Bacteria Many /hpf; Squamous Epithelial Cells Mod /hpf (Few)
[2020-11-18] MEDS ORDERED: CEPH500 PO (15:58)
== END 2020-11-18 16:46 | disposition home or self-care (01) ==
LOC: ER 10:50
PROVIDERS: Physician Assistant
DX: N39.0 Urinary tract infection, site not specified (principal); R41.82 Altered mental status, unspecified; L03.311 Cellulitis of abdominal wall; F17.210 Nicotine dependence, cigarettes, uncomplicated; Z93.3 Colostomy status; Z88.8 Allergy status to other drugs, medicaments and biological substances; Z88.2 Allergy status to sulfonamides; Z88.5 Allergy status to narcotic agent; Z91.040 Latex allergy status; Z79.02 Long term (current) use of antithrombotics/antiplatelets; Z79.899 Other long term (current) drug therapy; Z79.4 Long term (current) use of insulin
CPT/HCPCS: 36415; 70450; 71046; 80053; 81001; 84484; 85025; 85610; 87077; 87086; 87186; 93005; 93010; 96365; 99285-25; J0696; P9612

== ENCOUNTER 2020-11-22 06:20 | Inpatient (IN) | payer MEDICARE ==
[~2020-11-22] VITALS: Ht 165.1 cm; Wt 58.2 kg
[~2020-11-22 06:20] MED LIST changes: +AIMOVIG AU140 MG/1 M SC; +AMIT25 PO; +CEPH500 PO; +Isosorbide Mono30 MG PO; +NURTEC ODT75 MG SL
[2020-11-22 06:44] LABS: BASOPHILS ABSOLUTE AUTO 0.04 K/mm3 (0.00-0.23); BASOPHILS PERCENT AUTO 0 % (0-2); EOSINOPHILS ABSOLUTE AUTO 0.16 K/mm3 (0.00-0.68); EOSINOPHILS PERCENT AUTO 2 % (0-6); Hemoglobin 11.8 g/dL (11.5-16.0); IMMATURE GRAN ABSOLUTE AUTO 0.02 K/mm3 (0.00-0.10); IMMATURE GRAN PERCENT AUTO 0 % (0-1); LYMPHOCYTES ABSOLUTE AUTO 0.58 K/mm3 (0.84-5.20); LYMPHOCYTES PERCENT AUTO 6 % (21-46); MONOCYTES ABSOLUTE AUTO 0.48 K/mm3 (0.16-1.47); MONOCYTES PERCENT AUTO 5 % (4-13); Mean Corpuscular HGB 29.7 pg (26.0-34.0); Mean Corpuscular HGB Conc 31.9 g/dL (31.5-36.5); Mean Corpuscular Volume 93 fL (80-100); Mean Platelet Volume 11.5 fL (9.1-12.4); NEUTROPHILS ABSOLUTE AUTO 8.93 K/mm3 (1.96-9.15); NEUTROPHILS PERCENT AUTO 87 % (41-73); Platelet Count 226 K/mm3 (150-400); RDW Coefficient Variation 14.8 % (11.7-14.2); Red Blood Cell Count 3.97 M/mm3 (3.80-5.20); White Blood Cell Count 10.21 K/mm3 (4.00-11.30)
[2020-11-22 07:05] LABS: Albumin, Blood 3.5 g/dL (3.4-5.0); Albumin/Globulin Ratio 0.9 (0.8-1.8); Bilirubin, Total 0.5 mg/dL (0.1-1.0); Bun/Creatinine Ratio 14.3 (12.0-20.0); Calcium, Blood 9.8 mg/dL (8.5-10.1); Creatinine, Blood 1.05 mg/dL (0.40-1.00); Globulin, Blood 3.9 g/dL (2.2-4.0); Potassium, Blood 3.2 mmol/L (3.5-5.5); Total Protein, Blood 7.4 g/dL (6.4-8.2)
[2020-11-22 07:56] LABS: Source, Urine Catheter
[2020-11-22 08:00] LABS: Bilirubin, Urine Neg (Neg); Blood, Urine 2+ (Neg); Glucose Qualitative, Urine Neg (Neg); Ketones, Urine Neg (Neg); Leukocyte Esterase, Urine Neg (Neg); Nitrite, Urine Neg (Neg); Protein, Urine 2+ (Neg); Urobilinogen, Urine NORM (Normal)
[2020-11-22 08:09] LABS: Appearance, Urine Hazy (Clear); Color, Urine Yellow (P-Yellow)
[2020-11-22 08:10] LABS: Bacteria Not Seen /hpf; Squamous Epithelial Cells Few /hpf (Few); White Blood Cells, Urine Not Seen /hpf (0-5)
[2020-11-22 10:59] LABS: Magnesium, Blood 1.8 mg/dL (1.6-2.4)
--- NOTE | 2020-11-22 19:19 | NUR ---
SHIFT SUMMARY: PATIENT ADMIT FROM ED THIS SHIFT. PT A&O; CALM AND COOPERATIVE WITH CARE. HEAD CT INDICATES NEW INFARCT; EXPRESSIVE APHASIA; R SIDE WEAKNESS; R FACIAL DROOP. TELE IN PLACE; SR @ 65. PATIENT FAILED SWALLOW EVAL THIS SHIFT; STRICT NPO; ORAL CARE; SUCTION SWABS. BEDREST @ THIS TIME c Q2H TURNS. FLUIDS & IV ABX CONTINUING. REPORT GIVEN TO ONCOMING RN.
[2020-11-22] MEDS ORDERED: CEPH500 PO (23:54)
--- NOTE | 2020-11-23 01:59 | NUR ---
ENDOCRINE: PATIENT IS NPO BLOOD GLUCOSE WAS 89, DR VIVEROS IS NOTIFIED. ORDERS FOR HYPOGYLCEMIA PROTOCOL AND GIVE 1/2 AMP OF DEXTROSE. RECHECK WAS 197. WILL CONTINUE TO MONITOR.
[2020-11-23 05:19] LABS: Hematocrit 31.9 % (33.0-51.0); Hemoglobin 10.2 g/dL (11.5-16.0); Mean Corpuscular HGB 29.2 pg (26.0-34.0); Mean Corpuscular Volume 91 fL (80-100); Mean Platelet Volume 11.4 fL (9.1-12.4); Platelet Count 228 K/mm3 (150-400); RDW Standard Deviation 50.1 fL (35.1-46.3); Red Blood Cell Count 3.49 M/mm3 (3.80-5.20); White Blood Cell Count 7.05 K/mm3 (4.00-11.30)
[2020-11-23 05:43] LABS: Anion Gap 6 mmol/L (6-16); Blood Urea Nitrogen 8 mg/dL (8-24); Bun/Creatinine Ratio 9.6 (12.0-20.0); CO2, Blood 24 mmol/L (21-32); Calcium, Blood 8.7 mg/dL (8.5-10.1); Chloride, Blood 113 mmol/L (98-108); Creatinine, Blood 0.83 mg/dL (0.40-1.00); Glomerular Filtration Rate >60 (60-); Glucose, Blood 94 mg/dL (70-99); Potassium, Blood 3.5 mmol/L (3.5-5.5); Sodium, Blood 143 mmol/L (136-145)
--- NOTE | 2020-11-23 07:44 | NUR ---
SHIFT SUMMARY: A&O TO SELF AND PLACE UNSURE OF TIME. GENERALIZED WEAKNESS WITH RIGHT SIDE MORE PRONOUNCED. ABLE TO MAKE NEEDS KNOWN AND ANSWER QUESTIONS WITH 1&2 WORDS. INC. OF BLADDER ONLY ONCE THIS SHIFT. VSS, NO COMPLAINTS OF PAIN. PATIENT IS NPO DUE TO FAILED SWALLOW EVAL. ORAL CARE AND T&P ARE GIVEN. BED ALARM IS ON FOR SAFETY.
--- NOTE | 2020-11-23 16:12 | NUR ---
SUMMARY- PT ALERT TO SELF AND PLACE. KNOWS FAMILY AND CIRCUMSTANCES. KNOWS PRESIDENT SAVANA AFTER THINKING FOR A MINUTE. SPEECH SLOW AND SOFT. ISIAH. L ENVIRONMENTAL CONTROL ADMINISTRATOR STRONG, R ENVIRONMENTAL CONTROL ADMINISTRATOR WEAK. R FACIAL DROOP, NO TONGUE DEVIATION. PT GOT UP WITH PT TODAY TO THE CHAIR AND SAT UP THROUGH LUNCH FOR ABOUT AN HR AND HALF. WHEN GOT BACK TO BED, PT UNABLE TO BEAR WT AND WAS A MAX 2 PERSON LIFT WITH GAIT BELT TO CHAIR. SPEECH SAW PT AND PT IS STILL UNABLE TO SWALLOW. DR HSIEH AND SOCIAL SERVICE IN TODAY AND SPOKE OF PLAN FOR PT TO DC TO SNF. WILL REPORT TO RN ONCOMING.
--- NOTE | 2020-11-23 18:16 | NUR ---
Spiritual care note: Mrs. Bae was sleepy and very weak. She was unable to hold conversation, but was able to weakly say The Lord's Prayer with me. I held her hand for awhile and comforted. Television Cable Installer services will remain available.
--- NOTE | 2020-11-23 19:17 | NUR ---
CALLED DR HSIEH 1829 TO NOTIFY OF PTS BLOOD SUGAR AND TO CHANGE MED FORM TO CRUSHABLE. CHANGED IVF TH ADD D5
--- NOTE | 2020-11-24 05:53 | NUR ---
ICE CREAM DISPENSER SUMMARY PT AAOX2-3. STILL HAVING SOME EXPRESSIVE APHASIA BUT CAN ANSWER MOST YES/NO QUESTIONS FAIRLY EASILY. DOBHOFF PLACED JUST BEFORE START OF SHIFT, MEDS GIVEN VIA TUBE WITH NO ISSUES. PT STARTED ON D51/2NS AND CBG'S HAVE BEEN STEADY WITH MIDNIGHT CBG OF 132. STARTED ON FIRST DOSE OF PLAVIX. VSS, WILL CONTINUE TO MONITOR.
--- NOTE | 2020-11-24 17:28 | NUR ---
SHIFT SUMMARY PATIENT ALERT X3 THIS SHIFT. PATIENT REMAINS WEAK TO HER RIGHT SIDE WITH RIGHT SIDED FACIAL DROOP. PATIENT RESPONDS APPROPRIATELY TO QUESTIONS. PATIENT FOLLOWS DIRECTIONS WELL. PATIENT 2 ASSIST TO THE BEDSIDE CHAIR. PATIENT UP IN THE CHIAR EARLY THIS AFTERNOON. PATIENT WORKED WITH PT/OT AND SPEECH THERAPY THIS SHIFT. PATIENT PLACED ON CONTINUOUS FEEDING THROUGH DOBHOFF THIS SHIFT. PATIENT TOLERATING WELL. PATIENT DENIES PAIN THIS SHIFT. PATIENT CURRENTLY SITTING UP IN BED WATCHING TELEVISION.
--- NOTE | 2020-11-25 04:49 | NUR ---
SHIFT SUMMARY NO ACUTE CHANGES THIS SHIFT, NO C/O ANY KIND, FEEDINGS CURRENTLY @ 40MLS/HR- PT TOLERATING, MEDS VIA TUBE- NO ISSUES, PT SLEEPING AT THIS TIME, HOB @45, CALL LIGHT IN REACH, BED ALARM ACTIVE, WILL CONT TO MONITOR UNTIL REPORT GIVEN TO DAY RN.
[2020-11-25 05:28] LABS: BASOPHILS ABSOLUTE AUTO 0.05 K/mm3 (0.00-0.23); BASOPHILS PERCENT AUTO 1 % (0-2); EOSINOPHILS ABSOLUTE AUTO 0.37 K/mm3 (0.00-0.68); EOSINOPHILS PERCENT AUTO 5 % (0-6); Hematocrit 33.2 % (33.0-51.0); Hemoglobin 10.9 g/dL (11.5-16.0); IMMATURE GRAN ABSOLUTE AUTO 0.04 K/mm3 (0.00-0.10); IMMATURE GRAN PERCENT AUTO 1 % (0-1); LYMPHOCYTES ABSOLUTE AUTO 0.87 K/mm3 (0.84-5.20); LYMPHOCYTES PERCENT AUTO 13 % (21-46); MONOCYTES ABSOLUTE AUTO 0.51 K/mm3 (0.16-1.47); MONOCYTES PERCENT AUTO 7 % (4-13); Mean Corpuscular HGB 29.9 pg (26.0-34.0); Mean Corpuscular HGB Conc 32.8 g/dL (31.5-36.5); Mean Corpuscular Volume 91 fL (80-100); NEUTROPHILS PERCENT AUTO 74 % (41-73); Platelet Count 231 K/mm3 (150-400); RDW Coefficient Variation 14.7 % (11.7-14.2); RDW Standard Deviation 49.1 fL (35.1-46.3); Red Blood Cell Count 3.65 M/mm3 (3.80-5.20); White Blood Cell Count 6.94 K/mm3 (4.00-11.30)
[2020-11-25 05:49] LABS: Anion Gap 8 mmol/L (6-16); Blood Urea Nitrogen 8 mg/dL (8-24); Bun/Creatinine Ratio 9.3 (12.0-20.0); CO2, Blood 25 mmol/L (21-32); Calcium, Blood 9.2 mg/dL (8.5-10.1); Chloride, Blood 109 mmol/L (98-108); Creatinine, Blood 0.86 mg/dL (0.40-1.00); Glomerular Filtration Rate >60 (60-); Glucose, Blood 138 mg/dL (70-99); Potassium, Blood 3.5 mmol/L (3.5-5.5); Sodium, Blood 142 mmol/L (136-145)
--- NOTE | 2020-11-25 17:30 | NUR ---
SHIFT SUMMARY PATIENT ALERT X3 THIS SHIFT. PATIENT SITTING UP, COOPERATIVE WITH CARE THIS SHIFT. PATIENT CONTINUES ON TUBE FEEDING VIA DOBHOFF. GOAL RATE OF 55 ML/HR REACHED THIS SHIFT. PATIENT TOLERATING WELL. PATIENT WORKED WITH PT/OT THIS SHIFT. PATIENT'S SPOUSE IN THE ROOM TO VISIT THIS SHIFT. PATIENT CURRENTLY SITTING UP IN BED WATCHING TELEVISION.
--- NOTE | 2020-11-26 05:09 | NUR ---
SUMMARY PT CONTINUES TO HAVE RIGHT SIDE WEAKNESS. PT ABLE TO MAKE NEEDS KNOWN. PT USES CALL LIGHT APPROPIATELY. PT WAS TOLERATING TUBE FEEDING TIL THIS AM. PT C/O NAUSEA W/ ABD DISCOMFORT. DR OTOOLE CALLED AND ORDERED FEEDING BE HELD FOR 12 HRS AND TO ADD ZOFRAN. PT TX FOR NAUSEA W/ RELIEF. PT STOMA SITE HAS SOME PURULENT DISCHARGE NOTED. PHOTOS IN CHART FOR REFERENCE. UNKNOWN IF NEW OR ONGOING ISSUE. WILL NOTIFY ONCOMING RN. PT CURRENTLY RESTING COMFORTABLY. CALL LIGHT IN REACH.
--- NOTE | 2020-11-26 11:44 | NUR ---
Dobhoff insertion completed, assisted by Isma Aviles nurse discharge planner, and valdez Burrell RN. Pt tolerated it well. NUmerical marker 57 cm. KUB ordered before guide wire will be pulled if appropriately placed.
--- NOTE | 2020-11-26 17:48 | NUR ---
SHIFT SUMMARY PT PULLED DOBHOFF THIS AM AROUND 0900. NEW TUBE PLACED AT 1200 TODAY. COMFIRMED PLACEMENT WITH XRAY. MEDS GIVEN LATE AND FEED RESTARTED PER DR. HSIEH. PT STARTED ON LOVENOX ORDERED TODAY. PT WORKED WITH PHYSICAL THERAPY TODAY. PT SEEMED TO BE TOO TIRED TODAY TO PARTICIPATE MUCH PER PHYSICAL THERAPY. PT HAS BEEN TOLERATING THE 30ML/HR FEED SO FAR TODAY. BREAKDOWN AROUND PT STOMA SHOWN TO DR. HSIEH, NO NEW ORDERS RECIEVED AT THIS TIME. WILL CONTINUE TO KEEP SKIN CLEAN POSSIBLE. PEG TUBE PLANNED TO BE PLACED EARLY NEXT WEEK. NO OTHER ACUTE CHANGES IN ASSESSMENT AT THIS TIME. VS REVIEWED. PT TOLERATING Q2 TURNS AND PRN BREIF CHANGES.
--- NOTE | 2020-11-27 03:31 | NUR ---
SUMMARY PT NOTED TO HAVE THRUSH ON HER TONGUE. DR ENRIQUEZ CALLED AND ORDERED NYSTAIN. PT TOLERATING FEEDING WELL. PT DENIES ABD DISCOMFORT OR NAUSEA. PT UP LATE WATCHING TV. PT CURRENTLY SLEEPING AND IN NO DISTRESS. CALL LIGHT IN REACH.
--- NOTE | 2020-11-27 16:32 | NUR ---
SHIFT SUMMARY PT TOLERATED 40ML/HR CONTINUOUS FEED RATE T/O THE DAY, SO RATE WAS INCREASED TO 45 AT 1630. DOBHOFF REMAINS SECURED TO THE L NARE & PT HAS DENIED DISCOMFORT RELATED TO THAT NARE. PT HAD DENIED ABD PAIN & NAUSEA TODAY WELL. BS NORMAL & ACTIVE X4. ORAL NYSTATIN GIVEN THIS SHIFT WITH EXCESS FLUID SUCTIONED OUT AFTER PT SWISHED IN MOUTH. PT RECIEVED BEDBATH TODAY & TOOK A LONG NAP AFTERWARDS DURING THIS SHIFT. ORAL CARE COMPLETED Q2H & PRN. PT TOLERATES WELL. PT ALSO TOLERATING REPOSITIONS. VS REVIEWED. PT CURRENLTY SITTING UPRIGHT IN BED, ALERT & WATCHING TV. CALL LIGHT IN HAND.
--- NOTE | 2020-11-27 17:45 | NUR ---
ASKING FOR FOOD. PT ASKED "DO i GET TO EAT SOMETHING TONIGHT?" THIS AFTERNOON. WHEN ASKED IS SHE IS HUNGRY, PT REPLIED "YES". PT REMINDED OF HER STROKE AND THE RISKS RELATED TO HER SWALLOW. PT ALSO EDUCATED ON HER FEEDING TUBE. FEEDING RATE INCREASED TO 50ML/HR. PT CONTINUES TO DENY ABD PAIN & NAUSEA. PT STATED SHE UNDERSTOOD AFTER DISCUSSION, BUT SEEMED SADDENED.
--- NOTE | 2020-11-28 04:21 | NUR ---
SUMMARY PT TOLERATING FEEDINGS WELL. PT HAD NO NEW ISSUES NOTED. PT HAS BEEN SLEEPING FOR MOST OF SHIFT. PT REPOSITIONED NEEDED. PT CURRENTLY SLEEPING IN NO DISTRESS. CALL LIGHT IN REACH AND BED ALARM ON.
[2020-11-28 05:07] LABS: BASOPHILS ABSOLUTE AUTO 0.07 K/mm3 (0.00-0.23); BASOPHILS PERCENT AUTO 1 % (0-2); EOSINOPHILS ABSOLUTE AUTO 0.46 K/mm3 (0.00-0.68); EOSINOPHILS PERCENT AUTO 6 % (0-6); Hematocrit 34.7 % (33.0-51.0); IMMATURE GRAN ABSOLUTE AUTO 0.07 K/mm3 (0.00-0.10); IMMATURE GRAN PERCENT AUTO 1 % (0-1); LYMPHOCYTES ABSOLUTE AUTO 1.38 K/mm3 (0.84-5.20); LYMPHOCYTES PERCENT AUTO 17 % (21-46); MONOCYTES ABSOLUTE AUTO 0.63 K/mm3 (0.16-1.47); MONOCYTES PERCENT AUTO 8 % (4-13); Mean Corpuscular HGB 29.2 pg (26.0-34.0); Mean Corpuscular HGB Conc 31.7 g/dL (31.5-36.5); Mean Corpuscular Volume 92 fL (80-100); Mean Platelet Volume 11.6 fL (9.1-12.4); NEUTROPHILS ABSOLUTE AUTO 5.52 K/mm3 (1.96-9.15); NEUTROPHILS PERCENT AUTO 68 % (41-73); Platelet Count 268 K/mm3 (150-400); RDW Coefficient Variation 14.7 % (11.7-14.2); RDW Standard Deviation 49.7 fL (35.1-46.3); Red Blood Cell Count 3.77 M/mm3 (3.80-5.20); White Blood Cell Count 8.13 K/mm3 (4.00-11.30)
[2020-11-28 05:37] LABS: Anion Gap 5 mmol/L (6-16); Blood Urea Nitrogen 19 mg/dL (8-24); CO2, Blood 28 mmol/L (21-32); Calcium, Blood 9.6 mg/dL (8.5-10.1); Chloride, Blood 105 mmol/L (98-108); Creatinine, Blood 0.95 mg/dL (0.40-1.00); Glomerular Filtration Rate >60 (60-); Glucose, Blood 187 mg/dL (70-99); Potassium, Blood 4.4 mmol/L (3.5-5.5); Sodium, Blood 138 mmol/L (136-145)
--- NOTE | 2020-11-28 07:57 | NUR ---
PT PULLED HER DOBHOFF TUBE THIS AM; PER NIGHT NURSE, PT PULLED SECOND TIME ALREADY. INFORMED THE DR AND TO SEE IF WE CAN ORDER A PARENTERAL NUTRITION INSTEAD.
--- NOTE | 2020-11-28 13:28 | NUR ---
Assisted with pt care and therputic time with patient. pt compalins of a headache and some milg stomach discomfort. Pt able to answer most questions with some difficutly due to fatigue. Pt incontinenet and pulled out her NG tube she is on IV nutrition. Pt has a NG tube and is anticipating a peg tube. pt is dependent is all her ADL's. Pt states they have a son that lives in [place]. They get assistance from family that live near by. Attemepted last week to see her but her came in and was lost in hospital and very fatigued byt the time he came in. I called her today and her struggled to have conversation he repeated himself a few times. he states he probably would not come in today. He states that he recieved fourteen phone calls today from friends checking on him. Will speak with care managers may not be appropriate for them to live on their own. Was not able to have advance directive converstions with him.
--- NOTE | 2020-11-28 17:28 | NUR ---
SHIFT SUMMARY PT AOX2; PT IS 2P STAND PIVOT HARD TRANSFER DUE TO WEAKNESS. PT PULLED DOBHOFF THIS AM; RECEIVED AN ORDER FOR CLINIMIX. PT HAS ELEVATED BP; CALLED THE DR AND RECEIVED A PRN HYDRALAZINE FOR SBP THAT ARE MORE THAN 170. PT HAS PO MEDS; HOWEVER NPO AT THIS TIME. PEG TUBE WILL BE PLACED WITHIN 1-2 DAYS. PALLIATIVE CARE TALKED TO THE PT AND TODAY- SEE NOTES FOR FURTHER DETAILS. ORAL CARE NEEDED AND NYSTATIN PER ORDER. BED ALARM IS ON AND CALL LIGHT WITHIN REACH
--- NOTE | 2020-11-28 17:34 | NUR ---
in for a brief visit. He relayed how difficult it was to drive up due to the weather. We reviewed advance care planning. He has an advance directive that is DNR. The patient does not have an AD. She states full code at this time. We briefly discussed recussiation. Pt states they will discuss a plan. relays thay they live on his families inheritied land and his brother is the power of defense attorney. The do not have a will or medical POA. Advised them to apply for medicaid and to get their fianance in order with a poa and to get advanc directives. The did not want to discuss failty of or not beig able to drive. They have a son in [place] but he is unemployed and probably homeless. Pt high risk for readmission. Will continue to reenforce need for more assited type living.
--- NOTE | 2020-11-29 05:11 | NUR ---
FEDERAL JUDICIAL LAW CLERK SUMMARY NO ACUTE CHANGES THIS SHIFT. PT AAOX3 AND PLEASANT. STILL SOME EXPRESSIVE APHASIA BUT SPEECH IS IMPROVED FROM JUST A FEW DAYS AGO. STILL SOME SIGNIFICANT R SIDED DEFECITS NOTED. HS MEDS HELD PT PULLED JEAN-PAUL ON DAY SHIFT AND IS STRICT NPO DUE TO ASPIRATION RISK. PT HAS BEEN OFF PLAVIX SINCE 11/24 AND WILL BE REASSESSED BY GI LATER TODAY FOR A POSSIBLE PEG TUBE PLACEMENT. VSS, WILL CONTINUE TO MONITOR.
[2020-11-29 05:38] LABS: Hematocrit 37.2 % (33.0-51.0); Hemoglobin 11.8 g/dL (11.5-16.0); Mean Corpuscular HGB 29.5 pg (26.0-34.0); Mean Corpuscular HGB Conc 31.7 g/dL (31.5-36.5); Mean Corpuscular Volume 93 fL (80-100); Mean Platelet Volume 11.3 fL (9.1-12.4); Platelet Count 262 K/mm3 (150-400); RDW Coefficient Variation 14.6 % (11.7-14.2); White Blood Cell Count 8.49 K/mm3 (4.00-11.30)
[2020-11-29 05:57] LABS: Anion Gap 5 mmol/L (6-16); Blood Urea Nitrogen 31 mg/dL (8-24); Bun/Creatinine Ratio 35.1 (12.0-20.0); CO2, Blood 28 mmol/L (21-32); Calcium, Blood 9.9 mg/dL (8.5-10.1); Chloride, Blood 102 mmol/L (98-108); Creatinine, Blood 0.88 mg/dL (0.40-1.00); Glomerular Filtration Rate >60 (60-); Glucose, Blood 176 mg/dL (70-99); Potassium, Blood 4.1 mmol/L (3.5-5.5); Sodium, Blood 135 mmol/L (136-145)
--- NOTE | 2020-11-29 09:23 | NUR ---
GI CONSULT- SPOKE WITH GI OFFICE WHO REPORTS TO CALL DR MEADOWS REGARDING PEG TUBE PLACEMENT. SPOKE WITH DR MEADOWS WHO REPORTS MOST LIKELY WILL PLACE PEG TUBE TOMORROW AND WILL SEE THE PT SHARON.
[2020-11-29 10:27] LABS: Triglycerides 333 mg/dL (30-160)
--- NOTE | 2020-11-29 16:31 | NUR ---
SHIFT SUMMARY- PT A/OX3, SOME EXPRESSIVE APHASIA NOTED. PT DENIES ANY COMPLAINTS T/O THE DAY. RIGHT SIDE WEAKNESS WITH RIGHT HAND CONTRACTURE. LS DIMINISHED ON ROOM AIR, MOIST NPC, SUCTION AT BEDSIDE. COLOSTOMY IN PLACE. PER DR MEADOWS PEG TUBE PLACEMENT MOST LIKELY TOMORROW. PT CONTINUES WITH CLINIMIX AND LIPIDS, NEW IV PLACED. UP TO CHAIR WITH 2 ASSIST. NO OTHER ACUTE CHANGES THIS SHIFT.
--- NOTE | 2020-11-30 07:55 | NUR ---
SHIFT SUMMARY PT IS A 75 Y/O FEMALE, ADMITTED FOR AN ACUTE CVA. R-SIDE DEFICIT NOTED, WITH R FACIAL DROOP AND EXPRESSIVE APHASIA. PT IS STRICT NPO, RECEIVING CLINIMIX @ 100 ML/HR. VITAL SIGNS STABLE. PER DR MEADOWS, CONSULT FOR DR CANTU ORDERED FOR POSSIBLE PEG TUBE PLACEMENT. NO C/O NAUSEA, SOB OR PAIN. PT SLEPT WELL THROUGH THE NIGHT. NO ACUTE CHANGES IN PT CONDITION NOTED. WILL CONTINUE TO MONITOR AND TREAT PER EMAR UNTIL HAND OFF TO DAY SHIFT RN.
--- NOTE | 2020-11-30 18:19 | NUR ---
therputic visit with pt this afternoon. Pt alert but less verbal and more frail. States her was in today. plan is to see how she tolerates po intake. Will review prognosis and plan tomorrow again . Review with care team her and her frailty and that they may need intervention from [facility].
--- NOTE | 2020-11-30 18:34 | NUR ---
PT RESTING IN BED AFTER DINNER AND MEDICATION ADMIN. PT IS NOW FULL LIQ DIET AND TOLERATING WELL. PT ALERT AND ORIENTED X3-4. IV LINE WNL AND RUNNING. PT MAKES NO COOMPLAINTS AT THIS TIME AND IS ABLE TO MAKE HER NEEDS KNOWN BY STRINGING 5-7 WORDS TOGETHER AT A TIME. STAFF WILL CONT. TO MONITOR FOR CHANGES.
--- NOTE | 2020-12-01 04:52 | NUR ---
SHIFT SUMMARY ADMITTED FOR ACUTE CVA, RIGHT SIDED DEFICITS. FULL CODE. SHE IS ADVANCED TO PUREE DIET/NECTAR THIN LIQUIDS. IF INTAKE IS GOOD, WE WILL PURSUE PLACEMENT. PEG TUBE MAY NOT BE NECESSARY. NYSTATIN FOR ORAL THRUSH IN EMAR. OSTOMY IS PATENT. TPN/LIPIDS INFUSING ORDERED. SUCTION IN PLACE AT BEDSIDE, PRN CHOKING. SHE IS A 2 ASSIST TO BSC/CHAIR. SHE HAS EXPRESSIVE APHASIA. Q 6 HR CHEMSTICKS ORDERED. HX: AAA, DM2, CKD, CHF.
[2020-12-01 05:00] LABS: Hematocrit 34.2 % (33.0-51.0); Hemoglobin 11.1 g/dL (11.5-16.0); Mean Corpuscular HGB 29.1 pg (26.0-34.0); Mean Corpuscular HGB Conc 32.5 g/dL (31.5-36.5); Mean Corpuscular Volume 90 fL (80-100); Mean Platelet Volume 11.9 fL (9.1-12.4); Platelet Count 300 K/mm3 (150-400); RDW Coefficient Variation 14.6 % (11.7-14.2); RDW Standard Deviation 47.8 fL (35.1-46.3); Red Blood Cell Count 3.81 M/mm3 (3.80-5.20); White Blood Cell Count 10.21 K/mm3 (4.00-11.30)
[2020-12-01 05:22] LABS: Calcium, Blood 9.8 mg/dL (8.5-10.1); Creatinine, Blood 1.02 mg/dL (0.40-1.00); Potassium, Blood 5.2 mmol/L (3.5-5.5)
--- NOTE | 2020-12-01 16:55 | NUR ---
Pt fatigued will see how she responds to PO intake and speech reccomendations. Started some conversation with about their future will follow up with him. Will try to get him to give me his families contact information. They are both frail. May needs seniour services involvement.
--- NOTE | 2020-12-01 19:30 | NUR ---
SHIFT SUMMARY: HAD DIFFICULTY WITH SPEECH THIS MORNING, VERBALIZATION WAS BETTER THIS AFTERNOON AND EVENING. A&O X 2, R SIDE FLACCID, R FACIAL DROOP. TOLERATING PUREED DIET, NEEDS ASSISTANCE WITH FEEDING. MAX ASSIST WITH TRANSFERS TO CHAIR FOR MEALS. DENIED PAIN. CLINIMIX/LIPIDS INFUSING; SECURITY OPERATIONS ENGINEER FELT THAT PT NOT GETTING ENOUGH CALORIES/NUTRITION YET, MAY D/C THIS TOMORROW.
--- NOTE | 2020-12-02 03:49 | NUR ---
HEDDLER TIER SUMMARY NO ACUTE CHANGES NOTED TO PT THIS SHIFT. PT A&OX2, EXPRESSIVE APHASIA NOTED, R SIDED DEFICIT. NO C/O PAIN OR ANY DISCOMFORT. PT CALM AND RESTED IN BED T/O SHIFT. PT REQUIRES 2P MAX ASSIST WITH BED MOBILITY. BED AT LOWEST POSITION W/ ALARM ON. CALL LIGHT WITHIN REACH.
--- NOTE | 2020-12-02 18:07 | NUR ---
Review of pt with team. Pt will see her and see if she improves at this time pr ability has declines. Met with pt this afternoon. If you go slow she was able to track conversation. She stated if she could make progress she would try [facility] but if she gets sicker not wanting to continue. Called her caregiver Rina. She states pt was having difficulty swallowing at home and was sleeping on floor due to pain. Awaiting review from hospice. Per diagnositics pt would qualify per guidelines.Discussed with care manger placement in memory care on hospice.
--- NOTE | 2020-12-02 18:24 | NUR ---
PATIENT A/OX3 TODAY, ABLE TO SPEAK IN SHORT SENTENCES AT TIMES. UP TO CHAIR FOR MOST OF THE AFTERNOON WITH 2 MAX PIVOT TRANSFER. R HAND CONTRATURE, USING TOWEL ROLL TO KEEP OPEN. CONTINENT OF URINE TODAY, UP TO BSC. LIPIDS AND CLINIMIX D/C'D. PATIENT TOLERATING PUREE DIET. COLOSTOMY TO RUQ WITH VERY LITTLE OUTPUT TODAY. VSS, ON RA. USES CALL LIGHT APPROPRIATELY FOR ASSISTANCE. AWAITING SNF PLACEMENT.
[2020-12-03 05:19] LABS: Hematocrit 32.9 % (33.0-51.0); Hemoglobin 10.4 g/dL (11.5-16.0); Mean Corpuscular HGB 29.1 pg (26.0-34.0); Mean Corpuscular HGB Conc 31.6 g/dL (31.5-36.5); Mean Corpuscular Volume 92 fL (80-100); Mean Platelet Volume 12.2 fL (9.1-12.4); Platelet Count 254 K/mm3 (150-400); RDW Coefficient Variation 14.6 % (11.7-14.2); RDW Standard Deviation 49.4 fL (35.1-46.3); Red Blood Cell Count 3.57 M/mm3 (3.80-5.20)
[2020-12-03 05:54] LABS: Bun/Creatinine Ratio 47.9 (12.0-20.0); Calcium, Blood 9.8 mg/dL (8.5-10.1); Creatinine, Blood 1.17 mg/dL (0.40-1.00); Potassium, Blood 4.8 mmol/L (3.5-5.5)
--- NOTE | 2020-12-03 06:19 | NUR ---
PT HAS RIGHT SIDE DEFICIT FROM CVA AND GENERAL WEAKNESS, ABLE TO MAKE NEEDS KNOWN WITH SMALL VERBAL PHRASES. COLOSTOMY BAG CHANGED THIS SHIFT. ATTENDS FOR INCONTINENCE. MEDS CRUSHED IN APPLESAUCE, NECTAR THIS FLUIDS GIVEN VIA SPOON. AWAITING D/C TO SNF.
--- NOTE | 2020-12-03 16:54 | NUR ---
Shift Summary A/Ox2-3, does not know date/month. Slow to respond but comprehensible speech. Up to chair for all meals, worked with PT today. Incontinent. 2 max c gait belt and pivot transfer to chair/recliner. C/O mild abdominal pain around ostomy. Ostomy intact, output is brown, soft/unformed stools. visited briefly. PO intake is okay. R sided weakness from CVA, L leg unable to bend at knee but appears to be baseline. To note, hx of L knee replaced. No acute changes, WCTM.
--- NOTE | 2020-12-04 06:40 | NUR ---
PT IS ALERT, FORGETFUL AT TIMES, R SIDE DEFICIT FROM CVA, COLOSTOMY, 2 ASSIST TO CHAIR AT BEDSIDE, MEDS CRUSHED WITH APPLE SAUCE, NECTAR THICK FLUIDS. CBG AC/HS. INCONTINENT OF URINE.
--- NOTE | 2020-12-04 18:22 | NUR ---
Shift Summary Patient had uneventful day. Up in chair for all meals. Tolerating PO, patient even requesting to feed self. When this occurs, staff supervises and assists as needed. Colostomy intact and draining minimal brown soft/liquidy stools. Incontinent, had bedbath. Pleasant and cooperative. WCTM and report to oncoming RN.
--- NOTE | 2020-12-05 06:09 | NUR ---
SHIFT SUMMARY PT IS A 75 Y/O FEMALE, ADMITTED FOR AN ACUTE CVA. SHE IS A&O X 2-3, 2P MAX STAND AND PIVOT TO THE CHAIR. R-SIDE DEFICIT AND R FACIAL DROOP NOTED. NO C/O ACUTE PAIN, NAUSEA OR SOB. VITAL SIGNS STABLE. NO ACUTE CHANGES IN PT CONDITION NOTED. WILL CONTINUE TO MONITOR AND TREAT PER EMAR UNTIL HAND OFF TO DAY SHIFT RN.
[2020-12-05 12:08] LABS: Influenza A, PCR NEGATIVE (NEGATIVE); Influenza B, PCR NEGATIVE (NEGATIVE); Resp Syncytial Virus, PCR NEGATIVE (NEGATIVE); SARS-Cov-2 (COVID-19) PCR, MMC NEGATIVE (NEGATIVE)
[2020-12-05] MEDS ORDERED: ATOR40TA PO (14:00)
--- NOTE | 2020-12-05 14:37 | NUR ---
DISCHARGE NOTE THIS RN REMOVED PT'S IV FROM LEFT WRIST. THIS RN CALLED [facility] AND SPOKE WITH EMERY HUTCHISON, TO GIVE REPORT. PT DC'D IN HOSPITAL GOWN AND TOOK PT'S BELONGINGS HOME. THIS RN NOTIFIED DR. SEALS OF PT'S COLOSTOMY HAVING A DEEP 15CM+ TUNNEL WITH PURULENT DRAINAGE, BUT THIS RN RECIEVED ORDERS TO CONTINUE WITH TRANSFER TO SNF. WOUND PHOTOS UPDATED IN CHART. COLOSTOMY BAG CHANGED THIS AM. [facility] AT APPROXIMATELY 1445.
== END 2020-12-05 14:33 | DRG 65 ==
LOC: ER 06:20 → ERHOLD 09:33 → MEDS 09:33
PROVIDERS: Emergency Medicine; Internal Medicine; Nurse Practitioner Acute Care; ADMIT Internal Medicine
DX: I63.9 Cerebral infarction, unspecified (principal); G81.91 Hemiplegia, unspecified affecting right dominant side; I50.22 Chronic systolic (congestive) heart failure; I13.0 Hypertensive heart and chronic kidney disease with heart failure and stage 1 through stage 4 chronic kidney disease, or unspecified chronic kidney disease; N39.0 Urinary tract infection, site not specified; B37.0 Candidal stomatitis; Z20.822 Contact with and (suspected) exposure to COVID-19; R29.810 Facial weakness; I25.10 Atherosclerotic heart disease of native coronary artery without angina pectoris; E78.00 Pure hypercholesterolemia, unspecified; I35.0 Nonrheumatic aortic (valve) stenosis; N18.30 Chronic kidney disease, stage 3 unspecified; E11.22 Type 2 diabetes mellitus with diabetic chronic kidney disease; G43.909 Migraine, unspecified, not intractable, without status migrainosus; M54.12 Radiculopathy, cervical region; R47.81 Slurred speech; R47.1 Dysarthria and anarthria; M54.5 Low back pain; G89.29 Other chronic pain; R13.10 Dysphagia, unspecified; E11.51 Type 2 diabetes mellitus with diabetic peripheral angiopathy without gangrene; F17.210 Nicotine dependence, cigarettes, uncomplicated; E87.6 Hypokalemia; B96.20 Unspecified Escherichia coli [E. coli] as the cause of diseases classified elsewhere; Z96.652 Presence of left artificial knee joint; B95.5 Unspecified streptococcus as the cause of diseases classified elsewhere; I25.2 Old myocardial infarction; Z95.1 Presence of aortocoronary bypass graft; Z90.49 Acquired absence of other specified parts of digestive tract; Z98.890 Other specified postprocedural states; Z88.2 Allergy status to sulfonamides; Z88.5 Allergy status to narcotic agent; Z88.6 Allergy status to analgesic agent; Z88.8 Allergy status to other drugs, medicaments and biological substances; Z91.040 Latex allergy status; Z79.4 Long term (current) use of insulin; Z79.899 Other long term (current) drug therapy
CPT/HCPCS: 0241U; 36415; 51701; 70450; 71045; 80048; 80053; 81001; 82550; 82947; 83735; 84478; 84484; 85025; 85027; 92526; 92610; 93005; 93010; 93306; 93880; 94667; 94668; 94760; 96365-59; 97110; 97112; 97162; 97166; 97530; 97535; 99285-25; A9270; J0696; J1650; J2405; J3010; J3480; J7030

== ENCOUNTER 2020-12-18 15:51 | Inpatient (IN) | payer MEDICARE ==
[~2020-12-18] VITALS: Ht 167.6 cm; Wt 53.2 kg
[~2020-12-18 15:51] MED LIST changes: +ATOR40TA PO
[2020-12-18 16:17] LABS: BASOPHILS ABSOLUTE AUTO 0.06 K/mm3 (0.00-0.23); BASOPHILS PERCENT AUTO 1 % (0-2); EOSINOPHILS ABSOLUTE AUTO 0.15 K/mm3 (0.00-0.68); EOSINOPHILS PERCENT AUTO 1 % (0-6); Hematocrit 40.5 % (33.0-51.0); Hemoglobin 12.3 g/dL (11.5-16.0); IMMATURE GRAN ABSOLUTE AUTO 0.06 K/mm3 (0.00-0.10); IMMATURE GRAN PERCENT AUTO 1 % (0-1); LYMPHOCYTES ABSOLUTE AUTO 1.81 K/mm3 (0.84-5.20); LYMPHOCYTES PERCENT AUTO 14 % (21-46); MONOCYTES ABSOLUTE AUTO 0.67 K/mm3 (0.16-1.47); MONOCYTES PERCENT AUTO 5 % (4-13); Mean Corpuscular HGB 29.3 pg (26.0-34.0); Mean Corpuscular HGB Conc 30.4 g/dL (31.5-36.5); Mean Corpuscular Volume 96 fL (80-100); NEUTROPHILS ABSOLUTE AUTO 10.15 K/mm3 (1.96-9.15); NEUTROPHILS PERCENT AUTO 79 % (41-73); Platelet Count 222 K/mm3 (150-400); RDW Coefficient Variation 14.3 % (11.7-14.2); RDW Standard Deviation 50.4 fL (35.1-46.3)
[2020-12-18 16:36] LABS: Albumin, Blood 2.9 g/dL (3.4-5.0); Albumin/Globulin Ratio 0.7 (0.8-1.8); Bilirubin, Total 0.5 mg/dL (0.1-1.0); Bun/Creatinine Ratio 27.9 (12.0-20.0); Calcium, Blood 9.8 mg/dL (8.5-10.1); Creatinine, Blood 1.65 mg/dL (0.40-1.00); Globulin, Blood 4.1 g/dL (2.2-4.0); Potassium, Blood 4.3 mmol/L (3.5-5.5)
[2020-12-18] MEDS ORDERED: ENTRESTO 49 MG1 EACH PO (16:53)
[2020-12-18] MEDS ORDERED: CLOP75 PO (16:53)
[2020-12-18] MEDS ORDERED: METO25 PO (16:54)
[2020-12-18 17:15] LABS: Ethanol (Alcohol), Blood, Med <3 mg/dL; Magnesium, Blood 2.5 mg/dL (1.6-2.4); Troponin I 0.029 ng/mL (0.000-0.040)
[2020-12-18 17:19] LABS: Base Excess Venous 0 mmol/L; Bicarbonate Venous 24.2 mmol/L (24.0-30.0); PCO2 Venous 41.1 mmHg (38-42); pH Blood Venous 7.39 (7.34-7.37)
[2020-12-18 18:12] LABS: Source, Urine Catheter
[2020-12-18 18:16] LABS: Bilirubin, Urine Neg (Neg); Blood, Urine 2+ (Neg); Glucose Qualitative, Urine Neg (Neg); Ketones, Urine Neg (Neg); Leukocyte Esterase, Urine 2+ (Neg); Nitrite, Urine Neg (Neg); Protein, Urine 1+ (Neg); Specific Gravity, Urine 1.025 (1.003-1.022); Urobilinogen, Urine NORM (Normal)
[2020-12-18 18:29] LABS: U Amphetamine Screen Not Detected; U Barbituate Screen Not Detected; U Benzodiazapine Screen Not Detected; U Buprenorphine Screen Not Detected; U Cannabinoids Screen Not Detected; U Cocaine Screen Not Detected; U Methadone Screen Not Detected; U Methamphetamine Screen Not Detected; U Opiates Screen Not Detected; U Oxycodone Screen Not Detected; U Phencyclidine Screen Not Detected; U Propoxyphene Screen Not Detected
[2020-12-18 18:30] LABS: Appearance, Urine Hazy (Clear); Color, Urine Yellow (P-Yellow)
[2020-12-18 18:33] LABS: Bacteria Many /hpf; Squamous Epithelial Cells Few /hpf (Few); White Blood Cells, Urine 25-50 /hpf (0-5)
[2020-12-18] MEDS ORDERED: ONDA4 PO (19:24)
--- NOTE | 2020-12-18 22:51 | NUR ---
TRANSFER PCU PT ER ADMIT THIS EVENING FOR AMS, ENCEPHALOPATHY, AND UTI. SHE RECEIVED 1G ROCEPHIN IN THE ER AND FLUIDS. PT ARRIVED TO MEDICAL FLOOR AT 2103. UPON ARRIVAL TO THE UNIT HER LOC HAS DETERIORATED FURTHER FROM ER NURSES NOTES. PT ER NURSE NOTES PT WAS HAVING PERIODS OF APNEA BUT WAS SQUEEZING FINGERS, AND ATTEMPTED TO FORM WORDS. PT ARRIVES COMPLETLY UNRESPONSIVE TO VOICE OR TOUCH. WITH FREQUENT PERIODS OF APENA LASTING BETWEEN 5-10 SECONDS. EYES ARE HALF OPEN, AND PT IS MOUTH BREATHING WITH MOUTH FIXED OPEN. SECREATIONS HEARD IN THROAT. LUNGS DIMINISHED T/O. EXTREMITIES ARE FLACCID ASIDE FROM HER RIGHT ARM THAT SHE OCCASIONALLY MOVE NON-PURPOSEFUL TO HER CHEST. PUPILS ARE SLUGGISH. VITALS OBTAINED AND ARE STABLE. PT NSR WITH PVC'S ON TELE. THERE WAS NO FAMILY WITH PT WHEN SHE ARRIVED TO THE UNIT. PT NEXT OF KIN IN CHART CONTACTED. SPOKE WITH AND GAVE UPDATE ON HER CONDITION. HE SAYS THAT HE WAS UNABLE TO BE WITH PT AT THE HOSPTIAL HE IS UNABLE TO DRIVE AT NIGHT. CODE STATUS DISCUSSED WITH . DR. HSIEH SPOKE WITH PT ALSO REGARDING PT CONDITION, AND HE WOULD LIKE TO CONTINUE FULL TREATMENT AT THIS TIME. LITTLE DC, INSPECTOR PAPER PRODUCTS VERBALLY NOTIFIED OF PT CONDITION AND ASSESSED PT IN ROOM. SHE ALSO ASSESSED PERIODS OF APNEA IN PT LASTING ABOUT 20 SECONDS. SHE ALSO SPOKE WITH DR. HSIEH REGARING HER ASSESSMENT. FEED ELEVATOR WORKER'S KALYAN PAUL AND NURSING SUPREVISOR KATHY CHANDLER MADE AWARE. DR. HSIEH CONTACTED ONCE AGAIN AFTER SHE ENDED CALL WITH FAMILY AROUND 0. SHE ORDERED ADDITONAL LABS AND FOR TRANSFER TO PCU. REPORT GIVEN TO JOSE FRANCISCO LOADER HELPER SORTING YARD. PT TRANSFERRED TO PCU 16 AT 2251 WITHOUT EVENT. ADMISSION HX AND MEDICATION RECONCILIATION NOT UPDATED IN CHART AT THIS TIME PT IS UNABLE TO PROVIDE INFOMATION. LOADER HELPER SORTING YARD MADE AWARE AND IS TO FOLLOW UP WITH DAY RN.
[2020-12-18 22:56] LABS: PCO2 Arterial 34.5 mmHg (35-45); PO2 Arterial 63.6 mmHg (80-100); pH Blood Arterial 7.43 (7.35-7.45)
[2020-12-19 02:31] LABS: BASOPHILS ABSOLUTE AUTO 0.07 K/mm3 (0.00-0.23); BASOPHILS PERCENT AUTO 0 % (0-2); EOSINOPHILS ABSOLUTE AUTO 0.21 K/mm3 (0.00-0.68); EOSINOPHILS PERCENT AUTO 1 % (0-6); Hematocrit 38.8 % (33.0-51.0); Hemoglobin 11.9 g/dL (11.5-16.0); IMMATURE GRAN ABSOLUTE AUTO 0.09 K/mm3 (0.00-0.10); IMMATURE GRAN PERCENT AUTO 1 % (0-1); LYMPHOCYTES ABSOLUTE AUTO 1.55 K/mm3 (0.84-5.20); LYMPHOCYTES PERCENT AUTO 9 % (21-46); MONOCYTES PERCENT AUTO 4 % (4-13); Mean Corpuscular HGB 29.7 pg (26.0-34.0); Mean Corpuscular HGB Conc 30.7 g/dL (31.5-36.5); Mean Corpuscular Volume 97 fL (80-100); NEUTROPHILS ABSOLUTE AUTO 13.93 K/mm3 (1.96-9.15); NEUTROPHILS PERCENT AUTO 84 % (41-73); Platelet Count 199 K/mm3 (150-400); RDW Coefficient Variation 14.3 % (11.7-14.2); RDW Standard Deviation 51.1 fL (35.1-46.3); Red Blood Cell Count 4.01 M/mm3 (3.80-5.20); White Blood Cell Count 16.55 K/mm3 (4.00-11.30)
[2020-12-19 02:45] LABS: Bun/Creatinine Ratio 28.9 (12.0-20.0); Calcium, Blood 9.5 mg/dL (8.5-10.1); Creatinine, Blood 1.42 mg/dL (0.40-1.00)
--- NOTE | 2020-12-19 04:09 | NUR ---
SHIFT SUMMARY PT WAS TRANSFERRED TO THE UNIT AROUND 2300. PT WAS NON VERBAL, ABLE TO FOLLOW MY FINGER WITH HER EYES FOR LIMITED DISTANCE. PUPILS PEARLA AND BRISK. ALL EXTREMITIES EITHER RIDGID AND ADDUCTED OR FLACCID, ABLE TO VERY SLIGHTLY SQUEEZE WITH L HAND AND ABLE TO SLIGHTLY MOVE TOES ON R FOOT. PT OTHERWISE UNRESPONSIVE. PT WOULD GROAN AT TIMES, NO OTHER VERBALIZATION. BP 145/80. HR 87. ON ROOM AIR WITH O2 SATS >95%. LUNGS RONCHI SOUNDING, PT UNABLE TO FORCEFULLY COUGH. VITALS REMAINED STABLE T/O THE REST OF THE NIGHT. O2 SATS REMAINED ABOVE 95% WITH PT ON ROOM AIR T/O THE NIGHT. PT HAD NO CHANGE T/O THE NIGHT. NONVERBAL AND MOSTLY UNRESPONSIVE WITH EYES OPEN AND TRACKING AND PT GROANING AT TIMES. UNKNOWN BASELINE MENTATION AND MOVEMENT PT HAS HX OF CVA.
--- NOTE | 2020-12-19 18:29 | NUR ---
PT SUMMARY: PT REMAINED NON VERBAL FOR THE SHIFT, ABLE TO FOLLOW SOME COMMANDS CAN MAKE EYE CONTACT FOR COMMUNICATION. VITALS HRR SR 80'S, BP SYSTOLIC 150'S, SATS ABOVE 95% ON RA, AFEBRILE. PT WAS ABLE TO WORK WITH PT WAS ABLE TO SIT ON THE SIDE OF THE BED WITH SUPPORT, LIFT ASSISTS PER THERAPIST FOR TRANSFERS. PT REMAINED NPO ST EVAL ORDERED, ORAL CARE PROVIDED X3, BED BATH COMPLETED, OSTOMY BAG CHANGED, REPOSITIONED Q2HRS, PT INCONTINENT OF URINE ATTENDS CHANGED X1. CAME IN TO VISIT AND WAS UPDATED REGARDING PT'S PLAN OF CARE. PT IS NOW MEDICAL STATUS WITH NO TELE. TO CONTINUE IV ABO FOR UTI. CALL LIGHTS IN REACH WILL MONITOR UNTIL END OF SHIFT
--- NOTE | 2020-12-19 23:13 | NUR ---
PT TRANFFERED TO UNIT AT THIS TIME VIA HOSPITAL BED. TRANSFERRED TO UNIT BED WITH SLIDE SHEET. PT IS NON-VERBAL, ABLE TO OPEN EYES SPONTANEOUSLY. MEPLIEX IN PLACE ON COCCYX. BOOSTED AND REPOSITIONED IN BED. ATTENDS ARE DRY. PT NOW HAS EYES CLOSED. NS RUNNING AT 75ML/HR PER ORDER FROM PREVIOUS BAG THAT WAS TRANSFERRED OVER FROM PCU. BED ALARM ON, CALL LIGHT WITHIN REACH. WILL CONTINUE TO MONITOR.
--- NOTE | 2020-12-20 03:56 | NUR ---
TRANSFER TO [facility] PT TRANSFERED TO MEDICAL FLOOR AROUND 2300. PT ON ROOM AIR WITH SATS > 90% AND IRREGULAR BREATHING PATTERN. VITALS STABLE. PT NONVERBAL WITH LIMITED RESPONSE, ABLE TO TRACK WITH EYES. PUPILS PEARLA AND BRISK. NO MOTOR RESPONSE, EXTREMITIES EITHER FLACCID OR ADDUCTED AND TENSE. PT TRANSFERED TO MEDICAL FLOOR BED.
[2020-12-20 04:56] LABS: Hematocrit 34.7 % (33.0-51.0); Hemoglobin 10.9 g/dL (11.5-16.0); Mean Corpuscular HGB 29.5 pg (26.0-34.0); Mean Corpuscular HGB Conc 31.4 g/dL (31.5-36.5); Mean Corpuscular Volume 94 fL (80-100); Platelet Count 160 K/mm3 (150-400); RDW Coefficient Variation 13.7 % (11.7-14.2); Red Blood Cell Count 3.69 M/mm3 (3.80-5.20); White Blood Cell Count 10.98 K/mm3 (4.00-11.30)
[2020-12-20 05:13] LABS: Bun/Creatinine Ratio 22.8 (12.0-20.0); Calcium, Blood 8.7 mg/dL (8.5-10.1); Creatinine, Blood 1.01 mg/dL (0.40-1.00); Potassium, Blood 3.2 mmol/L (3.5-5.5)
--- NOTE | 2020-12-20 05:57 | NUR ---
FOREST BOTANY INSTRUCTOR SUMMARY PT CONTINUES TO BE NON-VERBAL. OPENS EYES OCCASIONALLY. SLEPT WELL TONIGHT AND CONTINUES TO HAVE APNEIC EPISODES FOLLOWED BY INCREASED BREATHING. PT HAS NOT VOIDED TONIGHT. BLADDER SCAN SHOWED 442ML IN THE BLADDER. HOSPITALIST DR. HSIEH NOTIFIED. STRAIGHT JENNYFER PRN IF OVER 400ML ORDERED. ATTEMPTED TO STRAIGHT JENNYFER PT WITH NO SUCCESS. PT'S BODY STIFF WITH MOVEMENT. WILL GIVE PT A BREAK AND WILL MAKE AM NURSE AWARE OF THIS. ATTENDS IN PLACE. CALL LIGHT WITHIN REACH, BED ALARM ON.
--- NOTE | 2020-12-20 10:23 | NUR ---
Received call from Bedside RN Mayuri. Mayuri reports family may benefit from discussion regarding goals of care. Pt is non verbal and appears significantly frail. Spoke with Caremansukumar Aparicio and discussed case. Alessandra reports Dr Parker is in agreement with discussion regarding goals of care. Pt resting in bed upon arrival. Pt is non verbal and appears to not understanding questions being asked. Discussed moving head up, down, side to side for yes and no questions. Pt not able to participate with conversation. Attempted to call Pt's spouse and left message with request for a return phone call. Plan: Will discuss goals of care with family.
--- NOTE | 2020-12-20 12:31 | NUR ---
Received call back from Pt's spouse Jono. Engaged in therapeutic conversation regarding goals of care. Offered therapeutic listening and answered questions. Comfort Care and hospice discussed as an option. Educated on comfort care and hospice philosophy. Jono reports needing time to consider this option and would like to discuss further tomorrow. Jono reports plan for Pt's niece to visit Pt today. No other concerns reported at this time. Palliative Care will remain available.
--- NOTE | 2020-12-20 17:07 | NUR ---
NO ACUTE CHANGES AT THIS TIME. PT DOES NOT VERBALIZE AT ALL, BUT WILL FOLLOW CAREGIVERS WITH HER EYES. PT WILL OIL BURNER A BIT WITH HER HANDS, BUT IT IS MORE A REFLEX SHE WOULD NOT LET GO WHEN ASKED. PT IS TURNED EVERY TWO HRS AND REPOSTIONED. BED ALARM IN PLACE WILL CONTINUE TO MONITOR.
[2020-12-21 05:20] LABS: Hemoglobin 10.5 g/dL (11.5-16.0); Mean Corpuscular HGB 29.2 pg (26.0-34.0); Mean Corpuscular HGB Conc 30.9 g/dL (31.5-36.5); Mean Corpuscular Volume 95 fL (80-100); Platelet Count 156 K/mm3 (150-400); RDW Coefficient Variation 13.8 % (11.7-14.2); RDW Standard Deviation 48.1 fL (35.1-46.3); Red Blood Cell Count 3.59 M/mm3 (3.80-5.20); White Blood Cell Count 9.25 K/mm3 (4.00-11.30)
[2020-12-21 05:44] LABS: Albumin, Blood 2.4 g/dL (3.4-5.0); Anion Gap 8 mmol/L (6-16); Blood Urea Nitrogen 17 mg/dL (8-24); Bun/Creatinine Ratio 17.7 (12.0-20.0); CO2, Blood 21 mmol/L (21-32); Calcium, Blood 8.2 mg/dL (8.5-10.1); Chloride, Blood 125 mmol/L (98-108); Creatinine, Blood 0.96 mg/dL (0.40-1.00); Glomerular Filtration Rate >60 (60-); Glucose, Blood 129 mg/dL (70-99); Potassium, Blood 2.9 mmol/L (3.5-5.5); Sodium, Blood 154 mmol/L (136-145)
--- NOTE | 2020-12-21 07:22 | NUR ---
SHIFT SUMMARY NO ACUTE CHANGES, REMAINS UNRESPONSIVE, REPOS Q2 T/O THE NIGHT, 2 LARGE INVONTINENT VOIDS, SLEEPING AT THIS TIME, BED ALARM ACTIVE, REPORT GIVEN TO DAY RN.
--- NOTE | 2020-12-21 10:17 | NUR ---
Spoke with [facility] and discussed case. Pt appears to have slight improvement from yesterday. Pt appears to understand but is still non verbal. Pt is able to follow some simple commands. Pt remains NPO. Pt resting in bed and unable to respond verbally. Pt still not able to respond to yes and no questions with head turning. Pt does appear comfortable with no S/S of distress at this time. Plan: Spouse Emmit to visit this afternoon. Will offer supportive and therapeutic visit. Will discuss goals of care. Palliative Care will remain available.
--- NOTE | 2020-12-21 16:03 | NUR ---
Case Conference Note Meeting with Pt's spouse Jono out in waiting room. Dr Parker present for much of the visit. Engaged in therapeutic discussion regarding goals of care. Discussed options including tube feeding and comfort care. Educated on comfort care and hospice philosophy. Some Re-enforcement needed with V/U made by Jono. Dr Parker answers questions. Jono reports Pt's wishes would be to focus on comfort at this point. Jono also is requesting to not advance her diet and wishes to keep Pt NPO. Continued therapeutic listening and answered questions. Nadine Alessandra arrives and discusses option for hospice. Jono reports concerns with his ability to provide care for Pt. Alessandra will work with Jono on D/C plan with hospice. Placed comfort care order, comfort care order set, and D/C maintenance medications per V/O from Dr Parker. Consulted with hospital Pharmacist Beth and Dr Parker. Pt has allergy to codein with unknown reaction and allergy to diazepam with mentation changes. Pt has recieved lorazepam in the past with no known reaction. Roxanol and Lorazepam ordered for comfort. Spoke with Bedside RN Michelle and discussed case. Discussed closely monitoring Pt when offered comfort medications. Palliative Care will remain available for support visits and symptom management.
--- NOTE | 2020-12-21 18:29 | NUR ---
SHIFT SUMMARY SHERRYANN WAS CHANGED TO COMFORT CARE THIS SHIFT. MADE DECISION DURING HIS VISIT HERE, PALLIATIVE CARE INVOLVED. PT FOLLOWING COMMANDS WITH EYES (TO FOLLOW FINGER) AND TO OPEN MOUTH. ROXANOL GIVEN FOR NONVERBAL S/S PAIN, PT STILL UNABLE TO SPEAK OR MOVE LIMBS. LE PLACED FOR CC PROTOCOL. ORAL CARE GIVEN. FREQUENT CHECKS, WCTM
--- NOTE | 2020-12-21 19:26 | NUR ---
RESTING QUIETLY. NO NOTED S/S ACUTE PAIN/DISTRESS. CALL LIGHT IN REACH
--- NOTE | 2020-12-21 21:48 | NUR ---
REPOSITIONED, ORAL CARE GIVEN. NO S/S ACUTE PAIN AT THIS TIME. HOB ELEVATED FOR COMFORT. CALL LIGHT IN REACH
--- NOTE | 2020-12-22 04:10 | NUR ---
SHIFT SUMMARY REMAINS ON COMFORT CARE. REPOSITIONED ABOUT EVERY 2 HRS AND ORAL CARE ATTEMPTED ABOUT EVERY 4 HRD, BUT DOES NOT ALLOW SPONGE INTO MOUTH, BITES DOWN AND REFUSES TO LET ORAL CARE TO BE DONE. HOB REMAINS ELEVATED FOR COMFORT. NO NOTED S/S OF ACUTE PAIN. CALL LIGHT IN REACH
--- NOTE | 2020-12-22 05:16 | NUR ---
RESTING QUIETLY. REPOSITIONED. NO NOTED ACUTE PAIN. CALL LIGHT IN REACH
--- NOTE | 2020-12-22 05:17 | NUR ---
AWAKE AT INTERVALS. NO NOTED S.S PAIN. CALL LIGHT IN REACH
--- NOTE | 2020-12-22 05:18 | NUR ---
RESTING QUIETLY. CALL LIGHT IN REACH
--- NOTE | 2020-12-22 05:19 | NUR ---
REPOSITOINED EARLIER. CONTINUES TO REST QUIETLY. CALL LIGHT IN REACH
--- NOTE | 2020-12-22 12:01 | NUR ---
Pt resting in bed with her eyes opened. Pt remains non verbal. Offered therapeutic touch and gentle voice. Pt appears comfortable with no S/S of distress at this time. Spoke with Bedside RN Michelle and discussed case. Palliative Care will remain available.
--- NOTE | 2020-12-22 17:35 | NUR ---
SHIFT SUMMARY URIAH LOOKED UNCOMFORTABLE THIS SHIFT. STILL UNABLE TO MOVE ARMS OR LEGS, BUT ABLE TO BLINK HER EYES AND FOLLOW FACES. USING BLINKS COMMUNICATION, SHE WAS ABLE TO COMMUNICATE YES/NO AND THAT SHE WANTED PAIN MEDICINE. RESTING COMFORTABLY NOW. OSTOMY BAG WITHOUT OUTPUT THIS SHIFT. LE INTACT AND DRAINING. PALLIAITVE VISITED HER. REGULAR TURNS AND ORAL CARE COMPLETED
--- NOTE | 2020-12-22 18:05 | NUR ---
Spiritual care note: I sat beside pt several times throughout shift. She is non-verbal, and does not move. She did follow me with her eyes and at times looked at me directly. I held her hand and provided assurance of care and safety. Spouse not present. [employer] services will remain available.
--- NOTE | 2020-12-22 19:15 | NUR ---
RESTING QUIETLY. NO NOTED S/S ACUTE DISTRESS. CALL LIGHT IN REACH
--- NOTE | 2020-12-22 21:33 | NUR ---
REPOSITIONED TO RIGHT. LE DRAINING. EYES OPEN. CALL LIGHT IN REACH
--- NOTE | 2020-12-23 04:22 | NUR ---
RESTING QUIETLY. CALL LIGHTIN REACH
--- NOTE | 2020-12-23 04:23 | NUR ---
REPOSITIONED NEEDED FOR COMFORT. CALL LIGHT IN REACH
--- NOTE | 2020-12-23 04:24 | NUR ---
RESTING QUIETLY. EYES OPEN ON OCCASIONS. CALL LIGHT IN REACH
--- NOTE | 2020-12-23 04:37 | NUR ---
SHIFT SUMMARY REMAINS ON COMFORT CARE. REPOSITIONED AT INTERVALS FOR COMFORT, ATTEMPTS MADE AT ORAL CARE. HOB ELEVATED FOR BREATHING. LESS INTERACTIVE WITH STAFF THAN NOTED 24 HR PREVIOUS. (HAD MORE EYE CONTACT BEFORE AND SOMEWHAT MORE RESPONSIBLE WITH BLINKING, ETC). CALL LIGHT IN REACH
--- NOTE | 2020-12-23 12:58 | NUR ---
Pt resting in bed with her eyes opened. Pt is still non verbal but does track with her eyes. Still unclear of how much she understands. Offered therapeutic touch and gentle voice. Spoke with Bedside EMERY Davidson and discussed case. No concerns reported at this time. Palliative Care will remain available.
--- NOTE | 2020-12-23 18:14 | NUR ---
PT RESTNG IN BED, COMFORT ASSESSED AND TURNED Q2 HOURS. PT IS NOT ABLE TO COMMUNICATE HER NEEDS. EDA WAS AT BEDSIDE THIS SHIFT. STAFF WILL CONT TO MONITOR.
--- NOTE | 2020-12-23 19:28 | NUR ---
ASSUMPTION OF CARE. ALERT WITH GLAZED LOOK WHEN YOU SPEAK TO HER. WHEN YOU ASK HER A QUESTION SHE DOES BLINK, NOT SURE IF THAT IS THE RESPONSE OR NOT. WILL CONTINUE TO WORK WITH HER. RIGHT NOW NO PAIN NOTED. SHE IS SITTING UP RIGHT. NO SECREATIONS. WILL CONTINUE TO MONITOR. CALL LIGHT IN REACH. BED ALARM ON.
--- NOTE | 2020-12-23 22:53 | NUR ---
MEDICATED FOR PAIN EARLIER, SHE IS NOW SLEEPING COMFORTABLY/
--- NOTE | 2020-12-24 06:10 | NUR ---
SHIFT SUMMARY: ALERT, NON-VERBAL, BLANK STARE AT TIMES. OTHER TIMES SHE APPEARS TO UNDERSTAND WHAT IS BEING SAID. WILL BLINK SOMETIMES FOR ANSWERS. COMFORT CARE, ROXINAL GIVEN X1. ORAL CARE AND POSITION CHANGE Q2 AND PRN. SLEPT WELL T/O NIGHT. NO ACUTE CHANGES OR CONCERNS. BED ALARM ON. CALL LIGHT IN REACH.
--- NOTE | 2020-12-24 06:29 | NUR ---
SON WENT HOME TO GET SOME THINGS AND WILL BE BACK.
--- NOTE | 2020-12-24 11:39 | NUR ---
PAL CARE COMFORT CARE VISIT - Review of EMR done prior to visit. Pt opens eyes to touch. Sometimes it appears as though she is making eye contact but mostly staring past me. She is quiet, still and calm, even while I washed her face. She appears comfortable and was recently repositioned by nursing. Winslow cath with yellow clear urine in drainage bag. s/s appear well managed at this time. No family/visitors in room during my visit. Plan daily comfort care visits.
--- NOTE | 2020-12-24 17:55 | NUR ---
PT RESTING IN BED, NOT ABLE TO COMMUNICATE HER NEEDS AT THIS TIME. COMFORT HAS BEEN ASSESSED AND PT HAS BEEN TURNED QHOUR. HER BED IS IN LOW POSITION AND STAFF WILL CONT. TO MONITOR FOR COMFORT.
--- NOTE | 2020-12-25 04:43 | NUR ---
SUMMARY PT HAS BEEN MEDICATED AND REPOSITIONED TO MAINTAIN COMFORT. PT ORAL CARE COMPLETED ORDERED. PT CURRENTLY SLEEPING AND COMFORTABLE.
--- NOTE | 2020-12-25 10:43 | NUR ---
Pt eyes open no reponse to verbal sitmulus or touch. Repirations deep and even. will continue to monitr closely for progression.
--- NOTE | 2020-12-25 17:42 | NUR ---
SHIFT SUMMARY PT ON COMFORT CAFE. REPOSITIONED AND ORAL CARE Q2. PT NON-RESPONSIVE THROUGHOUT THE SHIFT. PT ONLY RESPONDS BY CLAMPING DOWN MOUTH DURING ORAL CARE. PT SLEEPING THROUGHOUT THE SHIFT. LE PATENT AND DRAINING VERY SMALL AMOUNT OF URINE. VERY SMALL AMOUNT OF STOOL IN COLOSTOMY BAG. NOT MEDICATED FOR PAIN THIS SHIFT. BED IN LOW POSITION, CALL LIGHT WITHIN REACH. PT APNEIC BREATHING THROUGHOUT THE SHIFT.
--- NOTE | 2020-12-25 20:02 | NUR ---
PT WITH NO INTERACTION. EYES DRIFTED UPWARDS.RESPIRATIONS ARE IRREGULAR.NO MOVEMENT.NO WINCING WITH TOUCH OF RN.
--- NOTE | 2020-12-26 00:19 | NUR ---
NO ACUTE CHANGES.
--- NOTE | 2020-12-26 00:20 | NUR ---
SUPERVISOR MAPPING REPORTS SHE DID ORAL CARE AND LE CARE. ALSO REPORTS REPOSITIONING WITH HIPS FLOATED FOR COMFORT.
--- NOTE | 2020-12-26 05:49 | NUR ---
NO ACUTE CHANGES TONIGHT.
[2020-12-26] MEDS ORDERED: ATROPINE SULFATE2 M5 SL (08:46)
[2020-12-26] MEDS ORDERED: LORA2L PO (08:47)
[2020-12-26] MEDS ORDERED: MORP20L SL (08:48)
--- NOTE | 2020-12-26 10:31 | NUR ---
DISCHARGE SUMMARY PT DISCHARGE TO HOME WITH HOSPICE SERVICES ORDERED. PT CALM AND COMFORTABLE IN BED, NO SIGNS AND SYMPTOMS OF ANY DISTRESS OR PAIN. PT IN RA, INTERMITTENT BREATHING PATTERN NOTED. IV IN LEFT AC DISCONTINUED. LE PATENT AND DRAINING WELL.
== END 2020-12-26 10:30 | disposition hospice, home (50) | DRG 56 ==
LOC: ER 15:51 → MEDS 20:52 → PCU 20:52 → MEDS 21:03 → PCU 23:01 → MEDS 12-19 23:03 → ENPENDDIS 12-26 09:15 → MEDS 12-26 10:30
PROVIDERS: Emergency Medicine; Internal Medicine; ADMIT Internal Medicine
DX: I69.398 Other sequelae of cerebral infarction (principal); G92 Toxic encephalopathy; I50.22 Chronic systolic (congestive) heart failure; I13.0 Hypertensive heart and chronic kidney disease with heart failure and stage 1 through stage 4 chronic kidney disease, or unspecified chronic kidney disease; N39.0 Urinary tract infection, site not specified; E87.0 Hyperosmolality and hypernatremia; N17.9 Acute kidney failure, unspecified; I69.351 Hemiplegia and hemiparesis following cerebral infarction affecting right dominant side; I69.391 Dysphagia following cerebral infarction; Z66 Do not resuscitate; Z51.5 Encounter for palliative care; I69.322 Dysarthria following cerebral infarction; R13.10 Dysphagia, unspecified; I25.10 Atherosclerotic heart disease of native coronary artery without angina pectoris; E11.22 Type 2 diabetes mellitus with diabetic chronic kidney disease; E78.00 Pure hypercholesterolemia, unspecified; G43.909 Migraine, unspecified, not intractable, without status migrainosus; I35.0 Nonrheumatic aortic (valve) stenosis; G89.29 Other chronic pain; M54.5 Low back pain; E11.51 Type 2 diabetes mellitus with diabetic peripheral angiopathy without gangrene; M50.10 Cervical disc disorder with radiculopathy, unspecified cervical region; F17.210 Nicotine dependence, cigarettes, uncomplicated; I49.3 Ventricular premature depolarization; E87.6 Hypokalemia; E86.0 Dehydration; E78.5 Hyperlipidemia, unspecified; I35.1 Nonrheumatic aortic (valve) insufficiency; Z96.652 Presence of left artificial knee joint; N18.30 Chronic kidney disease, stage 3 unspecified; Z88.5 Allergy status to narcotic agent; Z88.2 Allergy status to sulfonamides; Z88.8 Allergy status to other drugs, medicaments and biological substances; Z88.6 Allergy status to analgesic agent; Z79.4 Long term (current) use of insulin; Z91.041 Radiographic dye allergy status; Z91.040 Latex allergy status; Z90.49 Acquired absence of other specified parts of digestive tract; Z98.890 Other specified postprocedural states; Z93.3 Colostomy status; Z79.02 Long term (current) use of antithrombotics/antiplatelets; Z79.899 Other long term (current) drug therapy; Z95.1 Presence of aortocoronary bypass graft; Z95.2 Presence of prosthetic heart valve
CPT/HCPCS: 36415; 36600; 51701; 51702; 70450; 71045; 80048; 80053; 80069; 81001; 82140; 82803; 82947; 83735; 83930; 84484; 85025; 85027; 87040; 87077; 87086; 87186; 92610; 93005; 93010; 94762; 96365; 97110; 97163; 97530; 99285-25; A9270; G0480; J0290; J0295; J0696; J1650; J1815; J3480; J7030; J7040; J7042; J7120; P9612